=== PATIENT | male | born 1945 | race Caucasian/White ===

== ENCOUNTER 2024-05-27 15:04 | Inpatient (IN) | payer MEDICARE, OTHER, SELFPAY ==
[2024-05-27] VITALS (52 sets, daily range): BP systolic 60–121; BP diastolic 47–85; BMI 23.3; BMI 22.7
--- NOTE | 2024-05-27 11:58 | ED.GENMED ---
History of Present Illness
General
Chief Complaint: Weakness
Source: patient
Exam Limitations: none
Time Seen by Provider: 05/27/24 11:41
History of Present Illness
History of Present Illness:
See MDM
Past History
Past History
ED Past Medical History: Cancer, GERD, HTN and Other (Arthritis)
ED Past Surgical History: Cholecystectomy, Orthopedic (Hip replacement surgery, knee arthroscopy, carpal tunnel surgery) and Other (History of pyloric valve stenosis with dilatation whipple)
Social History
Tobacco: Non-smoker
Alcohol: Daily
Drug: None
Personal:
Living: with family
Employment: Retired
Family History
Family History: Other (n/c)
Phy Exam
Physical Exam
Physical Exam:
See MDM
Course
Orders/Labs/Results
Orders:
Orders
05/27/24 11:29
Electrocardiogram (*1) Urgent
Reason for Study: Chest Pain
Cardiac Monitoring- Treatment ONCE
EKG- Treatment ONCE
IV Insert/Care/Rem.- Treatment PRN
O2 Therapy [RESP] Urgent
Titrate/Wean O2 to maintain O2 sat greater than (%): 90
Special Instructions: Maintain sats >/=90%
Pulse Ox/spot Check [RESP] Urgent
Quantity: 1
Special Instructions: ON ROOM AIR
05/27/24 11:34
Complete Blood Count/With Diff Urgent
Comprehensive Metabolic Panel Urgent
05/27/24 11:55
Add On- LAB Urgent
Tests Added?: Magnesium, TSH reflex Free T4
0.9% Sodium Chloride 1000 ml [Nss] 1,000 ml IV BOLUS
Diltiazem HCl [Cardizem] 10 mg IV NOW STA
Vital Signs
Initial and Last Documented VS:
Initial Vital Signs
Temp Pulse Resp BP Pulse Ox
98.4 F 138 20 82/57 93
05/27/24 11:30 05/27/24 11:30 05/27/24 11:30 05/27/24 11:30 05/27/24 11:30
Last Documented Vital Signs
Temp Pulse Resp BP Pulse Ox
98.4 F 141 26 82/57 94
05/27/24 11:30 05/27/24 11:45 05/27/24 11:45 05/27/24 11:31 05/27/24 11:45
MDM/Problems Addressed
Differential Diagnosis Includes:
HPI and MDM Narrative:
78-year-old male presenting with weakness and fatigue. Family does acknowledge that he has not been drinking much water recently. Patient just finished a 2-week course of radiation to his metastatic lung cancer. On arrival, patient found to be
tachycardic and in A-fib. He does acknowledge he has a history of paroxysmal A-fib but has never required blood thinners. Blood pressure is also low which is either related to the uncontrolled A-fib versus dehydration. Patient started on IV
fluids by EMS. Will give a very low dose of Cardizem in hopes to rate control the patient and increase his preload
Physical exam
General: Weak, fatigue
HEENT: protecting airway. Dry mucous membranes
Neck: appears supple
CV: No evidence of cyanosis. Tachycardic and
Resp: No accessory muscle use
Abd: Non-distended
Extremities: +2 pitting edema bilateral lower extremities
Neuro: alert
Psych: Normal affect
Skin: Intact
Problems Addressed including Acute and Chronic Conditions affecting care:
1. A-fib with RVR
Acuity: acute
Prognosis: unstable
Details: Patient given a low dose of IV Cardizem and attempt to rate control
2. Dehydration
Acuity: acute
Prognosis: unstable
Details: Will continue IV fluids
3. Hypoalbuminemia
Acuity: acute
Prognosis: stable
Details: Will give IV albumin
4. Thrombocytopenia
Acuity: acute
Prognosis: unstable
Details: Likely in setting of his radiation and cancer
5. [ ]
Acuity:
Prognosis:
Details:
Updates
Differential Diagnosis (but not limited to): A-fib, hyperthyroidism, dehydration
Testing considered: Chest x-ray
Drug therapy (if applicable): OTC meds, please see d/c instruction regarding Rx drugs
Amount and/or Complexity of Data Reviewed
Clinical info obtained from: Patient
External data reviewed: N/A
Labs I independently reviewed (but not limited to): Thrombocytopenia, elevated BUN, low albumin
Radiology: N/A
Pulse Ox: not hypoxic
EKG independently reviewed: A-fib with RVR, normal axis, no STEMI
Subacute Nurse: N/A
Critical Care: The high probability of a clinically significant, sudden or life threatening deterioration of the cardiovascular system(s) required my full and direct attention, intervention and personal management. The aggregate critical care time
was 33 minutes. This time is in addition to time spent performing reported procedures but includes the following:
[x] Data Review and interpretation
[x] Patient assessment and monitoring of vital signs
[x] Documentation
[x] Medication orders and management
Risk of Complication:
Social Determinants of health: Good social support
Discussed with other providers: Hospitalist
Escalation of Care includes Admit/Obs: Given the lab abnormalities, will admit for further workup
Occasional wrong word or 'sound a like' substitutions may have occurred due to the inherent limitations of voice recognition software. Read the chart carefully and recognize, using context, where substitutions have occurred.
*Critical Care Note
Total Time (30-74mins, 75-104mins- exclusive of procedures): 35 min
ED Attending Note
-
Portions of this chart may have been created with voice recognition software.� Occasional wrong word or��sound alike� substitutions may have occurred due to the inherent limitations of voice recognition software.
Discharge Plan
Departure
Patient Disposition: Admit
Date of Disposition: 05/27/24
Time of Disposition: 12:14
Admit to: IMU
Presentation/result/management discussed w/ accepting MD/DO: Hospitalist
Discharge Problem:
A-fib, Acute dehydration, Thrombocytopenia
Prescriptions:
No Action
multivitamin [Daily Multiple] 1 EACH tablet
1 tab PO DAILY
diltiazem HCl 360 MG capsule,extended release 24 hr
120 mg PO DAILY Qty: 30 0RF
Patient Comments:
pt states he takes 300mg, not the previous 360mg originally on the med list
pantoprazole 40 MG tablet,delayed release (DR/EC)
40 mg PO DAILY
Interventions
Interventions:
*Risk Screen - Suicide Last Done: 05/27/24 11:30
*General Assessment Last Done: 05/27/24 11:30
*Neglect/Abuse Screening Last Done: 05/27/24 11:30
ED- Fall Risk Assessment Last Done: 05/27/24 11:45
*ED COVID-19 Vaccine History Last Done: 05/27/24 11:30
ED- Cardiac Assessment Last Done: 05/27/24 11:45
ED- Neurological Assessment Last Done: 05/27/24 11:45
ED- Pulmonary Assessment Last Done: 05/27/24 11:45
Discharge Date and Time
Print Language: UGANDAN
[2024-05-27 11:59] LABS: ALT (SGPT) 42 U/L (0-50); AST (SGOT) 59 U/L (17-59); Albumin 2.2 g/dl (3.5-5.0); Alkaline Phosphatase 254 U/L (38-126); Blood Urea Nitrogen 116 mg/dl (9-20); Calcium 7.9 mg/dl (8.4-10.2); Carbon Dioxide 21 mmol/L (22-30); Chloride 100 mmol/L (98-107); Estimated Creatinine Clearance 27 ml/min; Glucose 116 mg/dl (70-99); Sodium 135 mmol/L (135-145); Total Bilirubin 1.6 mg/dl (0.2-1.3); Total Protein 4.2 g/dl (6.3-8.2); eGFR 28.18
[2024-05-27] MEDS: CARDIZEM 5 MG IV (12:01)
[2024-05-27 12:03] LABS: Hematocrit 30.3 % (39.0-52.0); Mean Corp Hgb Conc. 36.3 g/dL (33.0-37.0); Mean Corpuscular Hgb 34.6 pg (27.0-31.0); Mean Corpuscular Volume 95.3 fL (80.0-94.0); Platelet Count 3 10^3/uL (130-400); Red Blood Cell Count 3.18 10^6/uL (4.70-6.10); White Blood Cell Count 7.2 10^3/uL (4.8-10.8)
[2024-05-27] MEDS: NSS 1000 IV ×3 (12:03→23:00)
[2024-05-27 12:29] LABS: % Basophils 0.7 % (0-2); % Immature Granulocytes 2.9 % (0-0.5); % Lymphocytes 0.8 % (20.5-51.1); % Monocytes 3.3 % (1.7-9.3); % Neutrophils 92.3 % (42.2-75.2); Absolute Basophils 0.1 10^3/uL (0-0.2); Absolute Immature Granulocytes 0.2 10^3/uL (0-0.05); Absolute Lymphocytes 0.1 10^3/uL (1.2-3.4); Absolute Monocytes 0.2 10^3/uL (0.1-0.6); Absolute Neutrophils 6.6 10^3/uL (1.4-6.5); Nucleated Red Blood Cells % 0 % (-)
[2024-05-27] MEDS: FLEXBUMIN 50 IV (12:29)
[2024-05-27 13:03] LABS: Magnesium 2.3 mg/dl (1.6-2.3)
--- NOTE | 2024-05-27 13:08 | HPS.HSE ---
Family Physician
-
Family Physician: Viraj Cuevas
Chief Complaint
-
Weakness, fatigue, sore throat, cough, dysphagia, current metastatic pancreatic CA
History of Present Illness
78-year-old male from home by EMS complaining of weakness and fatigue, 4 days of productive cough with sore throat, dysphagia. His family reported to ER he has not been eating and drinking as much recently. He just finished a 2-week course of
radiation due to metastatic pancreatic ca mets to right lung pleural space December 2022. He also finished dexamethasone 2 mg twice daily yesterday 05/26/2024 due to radiation with right arm pain. He currently has oral thrush with sore throat and
dysphagia. En route to ER he was noted to be in rapid A-fib and hypotensive. He was started on IV fluids by EMS. In ER heart rate was noted to be A-fib with RVR 123 bpm with blood pressure 82/57 he was given low-dose 5mg Cardizem and additional 2
L of IV fluids for a total of 3 L. Despite treatment he is still in rapid A-fib and hypotensive.
He has past medical history of metastatic pancreatic CA initial Dx 2013 mets December 2022 to right pleural space status post chemo December 2022April 2024 Xeloda stopped April 15, 2024 by oncology history of Whipple procedure 2014, paroxysmal A-fib,
GERD, macrocytic anemia, chronic hyponatremia secondary metastatic pancreatic CA. December 2022 to right pleural space status post chemo December 2022April 2024, history of Whipple procedure 2014
Medical History
Past Medical History
Past Medical History: Reports Other
Additional Past Medical History:
metastatic pancreatic CA initial Dx 2014 mets December 2022 to right pleural space status post chemo December 2022April 2024 Xeloda
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
paroxysmal A-fib
Cardiac murmur known
GERD
macrocytic anemia
chronic hyponatremia secondary metastatic pancreatic CA
history of Whipple procedure 2014
Past Surgical History: Reports Other
Additional Past Surgical History:
Left hip pinning 1957
Right knee arthroscopy times 10/25/1979
Left total hip replacement 2006
Right total knee replacement 2018
CTR bilateral hands SeptemberOctober 2013
Pyloric valve dilation
Whipple 2014
Social History
Tobacco: Non-smoker
Alcohol: Former (Used to drink 2 glasses of wine daily until 1 month ago)
Drug: None
Personal:
Living: With Family ( myke )
Employment: Retired
Family History
Family History: Not pertinent
Allergies / Home Medications
Allergies reflects when Allergies were last updated in [employer].
Home Medications with original date entered in [employer]
Allergy/Medication List:
Allergies
Allergy/AdvReac Type Severity Reaction Status Date / Time
No Known Allergies Allergy Verified 01/13/19 19:53
Home Medications
Pancreatic Nutrients 1 tab PO BID@0800,2200 05/27/24
dexamethasone 2 mg tablet 2 mg PO BID 05/27/24
diltiazem HCl 120 mg capsule,24 hr,extended release (Tiadylt ER) 120 mg PO DAILY 05/27/24
famotidine 40 mg tablet 40 mg PO DAILY 05/27/24
mnyjcd-fxxjutuy-moklltm 24,000-76,000-120,000 unit capsule,delayed rel (Creon) 1 cap PO BID@1200,1800 05/27/24
sodium chloride 1,000 mg soluble tablet 2,000 mg PO BID 05/27/24
Review of Systems
-
History Source: Patient and Family ( myke and daughter at bedside)
A 12 point ROS was completed and negative except as noted: Yes
Constitutional: Reports Fatigue; Denies Fever or Chills
EENT: Reports Sore Throat and Other (Dysphagia, oral thrush); Denies Runny Nose
Respiratory: Reports Cough (Productive white-hurtado); Denies Trouble Breathing
Cardiac: Denies Chest Pain, Diaphoresis, Palpitations or Syncope
Abdomen/GI: Reports Other (Reported decreased urine output but decreased oral intake); Denies Abdominal Pain, Nausea, Vomiting, Diarrhea, Constipated, Bloody Stools or Black Stools
: Denies Dysuria, Frequency, Flank Pain, Incontinence, Difficulty Voiding or Urgency
Musculoskeletal: Reports Edema (+1-2 lower ankles only); Denies Joint Pain
Skin: Denies Itching or Rash
Neurological: Reports Weakness (Generalized); Denies Dizzy or Headache
Endocrine: Reports No Symptoms
Hematologic/Lymphatic: Reports No Symptoms
Psych: Reports Calm
Physical Exam
Vital Signs
Vital Signs
Temp Pulse Resp BP Pulse Ox
98.4 F 116 18 75/63 93
05/27/24 11:30 05/27/24 12:45 05/27/24 12:45 05/27/24 12:30 05/27/24 12:45
Physical Exam
General: Comfortable, Conversant and Other (Generalized weakness); No Fever or Chills
HEENT: NormoCephalic, Thrush (Oral thrush present), PERRLA, [place] Conjunctivae, No Ptosis and Other (Dry oral mucosa)
Respiratory: No Wheezes, Rales or Rhonchi
Cardiac: S1/S2, Irregular Rhythm (Rapid A-fib with RVR 132 bpm), Murmur (Holosystolic 3/6) and Peripheral Edema (+2 lower ankles only)
Breast: Deferred by me
GI: Soft, Non Tender, Non Distended, Normal Bowel Sounds and No Hepatosplenomegaly
Rectal: Deferred by Provider
Genito-urinary: Deferred by me
Musculoskeletal: No Clubbing, No Cyanosis, Edema, Left Lower Extremity (+1-2 lower ankles only) and Edema, Right Lower Extremity (+1-2 lower ankles only); No Edema, Left Upper Extremity or Edema, Right Upper Extremity
Skin: Warm and Dry; No Rash
Neuro: AO x 3, No Motor Deficits, Nonfocal/grossly intact and No Sensory Deficits; No Slurred Speech, Facial Droop or Tremors
Psych: Calm
Laboratory Results
-
05/27/24 11:34
05/27/24 11:34
Laboratory Results
Total Bilirubin 1.6 mg/dl (0.2-1.3) H 05/27/24 11:34
AST 59 U/L (17-59) 05/27/24 11:34
ALT 42 U/L (0-50) 05/27/24 11:34
Alkaline Phosphatase 254 U/L (38-126) H 05/27/24 11:34
Impression/Plan
-
Impression/plan:
Admit to ICU
#A-fib with RVR�UNstable/paroxysmal A-fib
-HR 123 bpm on EKG
-Patient was given diltiazem 5 mg IV in ER with BP 82/57
-Hold p.o. diltiazem 120 mg daily due to hypotension
-Will give IV amiodarone drip for rate control and IV phenylephrine for pressure support
-Check mag, TSH with free T4
-Repeat EKG when heart rate less than 100
-Check 2D echo
-Consult CBC cardiology-discussed with Dr. Hall
EKG: A-fib with RVR HR 126 bpm, QTc 422 MS nonspecific T wave abnormality inferior leads, anterolateral leads
2D echo 07/26/2020: EF 55-60%, mild MR, calcified aortic valve with mild mild AI
#Acute hypotension likely volume depletion possible sepsis/benign HTN
67/58 >75/63
Patient given 3 liters total NSS
-IV phenylephrine drip
-Check lactic acid, Pro-Driss, blood culture x 1
-Consult security sergeant
-
#Acute thrombocytopenia unclear
PLT 3, stopped Chemo Xeloda Apr 15
-Check type and screen, obtain transfusion consent
-Transfuse platelets per oncology
-IV Decadron 40 mg daily x 5 pulse dose, IV PPI
-Consult Hematology
#SHANI likely volume depletion vs obstructive uropathy
Creat 2.3/bun 116
-IV NSS 3 L given in ER, continue IV fluids
-Bladder scan protocol
-Check UA DIRECTOR SAFETY
-Check renal bladder ultrasound when stable
-Consider Nephro consult
follow cmp, cbc
#Acute hypoxic resp insuff concern for PNA
88 % Ra, give 2 liter nc
- check CXR
-sputum culture
- covid, flu swab, lactic acid, Pro-Driss
-Will cover with vancomycin, IV Zosyn
#Metastatic Pancreatic ca( x 2013 whipple 2015) METS to R lung plueral space december 2022
Hx fluid right pleural fluid s/p pluerax tube december 2022
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
-Stopped Xeloda April 15, [address] Kulwinder Singh oncology at [place] [phone]
-Had reported PET scan April 2024 at [place]
-Continue Creon 1 cap p.o. twice daily
#Anemia macrocytic
Hgb 11 prior 10.7 in 2019
-Follow CBC
#Chronic hyponatremia 2/2 metastatic lung cancer
-NA 135
-Patient on sodium chloride 2000 mg twice daily hasnt taken in 4 days
-Follow BMP
#GERD
Hx pyloric valve dilation
-Will give IV Protonix 40 mg daily hold oral Pepcid 40 mg daily
DVT prophylaxis
-Current platelets of 3
DNR per patient with Myke at bedside
[2024-05-27 13:40] LABS: TSH Reflex To Free T4 0.19 uIU/ml (0.47-4.68)
[2024-05-27 14:10] LABS: Free T4 1.34 ng/dl (0.78-2.19)
--- NOTE | 2024-05-27 14:34 | W.PN.UPDATE ---
Addendum entered and electronically signed by Richi Stuart MD 05/27/24 15:02:
Albumin was given in ER. 1 unit platelet transfusion. Nystatin swish and swallow for thrush.
Original Note:
Update Note
Progress Note Update
This is an addendum to the H&P written by Love Hernandez on 05/27/2024. Patient seen examined independently with TIRE DESIGN ENGINEER.
78-year-old male past medical history of metastatic pancreatic cancer status post Whipple with metastases to the right pleural space with chest tube now removed, status post chemotherapy from December 2022 to April 2024, Xeloda, paroxysmal atrial
fibrillation, GERD, microcytic anemia, chronic hyponatremia, presenting with weakness, fatigue, sore throat, cough.
Patient arrived hypotensive and in atrial fibrillation with RVR with heart rate of 130s. He was given 3 L of IV fluids. Cardizem was given in ER with worsening of blood pressure.
Labs show SHANI with creatinine of 2.3, severe thrombocytopenia with platelets of 3.
Primary issue is atrial fibrillation with RVR with hypotension. The underlying cause of this could be hypovolemia versus infection. Check chest x-ray to evaluate for pneumonia. Check sputum culture and COVID. Check blood culture. Continue IV
fluids. Start empiric vancomycin/Zosyn. Check lactic acid/Pro-Driss. Discussed with cardiology who recommended phenylephrine drip and amiodarone drip. Check TSH and echocardiogram.
Patient has SHANI without any prior lab work available. This is likely due to hypotension/hypovolemia. Monitor with IV fluids. Check renal ultrasound when more hemodynamically stable. Monitor I's and O's. Bladder scan protocol. Nephrology
consulted.
Severe thrombocytopenia unclear etiology. This could possibly be secondary to recent chemotherapy versus marrow involvement of the pancreatic cancer. No petechiae or bleeding suggest ITP. Discussed with oncology who recommends pulse dose steroids
with dexamethasone.
[2024-05-27] MEDS: NEO-SYNEPHRINE 250 IV ×2 (14:37→21:51)
[2024-05-27 14:44] LABS: COVID-19 Antigen Negative (Negative)
[2024-05-27] MEDS: PROTONIX IV 40 MG IV (14:45)
[2024-05-27] MEDS: CORDARONE 518 MG IV (14:47)
[2024-05-27 15:02] LABS: Lactic Acid 3.5 mmol/L (0.7-2.0)
[2024-05-27] MEDS: DECADRON 60 MG IV (15:04)
--- NOTE | 2024-05-27 15:12 | CM ---
CM reviewed medical record. CM met with patient and his , Doris in room. Patient confirmed demographics. Patient lives in [place] at [facility]. Patient is monitored by the [facility] RN. Patient does have a history of VN 'set up by Sonny', but
is currently not on service. Patient denies SNF stay. Patient has been increasingly dependent on a walker. Patient is active with his PCP and uses [facility] for medication services.
CM will continue to follow for needs.
--- NOTE | 2024-05-27 15:23 | CON.INTV ---
Consultation
Consultation Request
Date/Time Consultation Requested: 05/27/2024-3:30 PM
Date/Time Consultation Performed: 05/27/2024-4 PM
Requesting Provider: Hospitalist
Performing Provider: Dr. Jean
Reason for Consultation: Critical care management
Medical History
-
Chief Complaint: Cough, weakness, hypotension
History of Present Illness:
78-year-old male with a history of metastatic pancreatic cancer, paroxysmal atrial fibrillation, GERD, chronic hyponatremia who presented with weakness, fatigue, sore throat, cough and dysphagia noted to have severe thrombocytopenia, rapid atrial
fibrillation on amiodarone and phenylephrine drip-executive director of marketing consulted for pressor, atrial fibrillation, critical care management 05/27/2024. The patient states he has not had much of an appetite has had some weight loss. He did not have any
fevers or chills or night sweats. He does have some mild chest congestion. He did not complain of productive cough, chest pain, pleurisy, or abdominal pain, nausea, focal weakness and he had some lower extremity swelling that is actually improved.
Past Medical History
Past Medical History: None (Metastatic pancreatic cancer-diagnosed 2013 status post chemo/immunotherapy/Whipple. Metastatic disease to right pleural space. Right upper lobe nodule. PAF. GERD. Chronic anemia. Chronic hyponatremia.)
Past Surgical History: None (Whipple 2014. Left hip pinning 1957. Right knee arthroscopy 1979. Left hip replacement 2006. Right total knee replacement 2018. Carpal tunnel 2013. Pyloric valve dilation.)
Social History
Tobacco: Non-smoker
Alcohol: Occasional
Drug: None
Personal:
Living: With Family
Occupational Exposures: No known asbestos exposure
Environmental Exposures: No known tuberculosis exposure
Allergies / Home Medications
Allergies
Allergy/AdvReac Type Severity Reaction Status Date / Time
No Known Allergies Allergy Verified 01/13/19 19:53
Home Medications
�Medication �Instructions �Recorded �Confirmed �Last Taken �Type
Pancreatic Nutrients 1 tab PO BID@0800,2200 05/27/24 05/27/24 Unknown History
dexamethasone 2 mg tablet 2 mg PO BID 05/27/24 05/27/24 05/26/24 History
diltiazem HCl 120 mg capsule,24 120 mg PO DAILY 05/27/24 05/27/24 05/26/24 History
hr,extended release (Tiadylt ER)
famotidine 40 mg tablet 40 mg PO DAILY 05/27/24 05/27/24 Unknown History
yaetpv-paxprmyg-dfrnwvs 1 cap PO BID@1200,1800 05/27/24 05/27/24 Unknown History
24,000-76,000-120,000 unit
capsule,delayed rel (Creon)
sodium chloride 1,000 mg soluble 2,000 mg PO BID 05/27/24 05/27/24 Unknown History
tablet
Review of Systems
-
Unable to Obtain full review of systems at this time due to: Other (Per HPI)
Vitals / Labs / Diagnostic Testing
Vital Signs
Temp Pulse Resp BP Pulse Ox
98.4 F 129 25 116/62 91
05/27/24 11:30 05/27/24 15:01 05/27/24 15:01 05/27/24 15:01 05/27/24 15:01
Lab Data
05/27/24 11:34
05/27/24 11:34
Microbiology
05/27/24 13:57 Nasal Swab Influenza Types A & B (MORENO) - Final
Negative for Influenza A & B, NAAT
Negative results must be combined with clinical observations
and patient history.
Nucleic Acid Amplification test (NAAT)performed on the
[employer] platform.
Diagnostic Testing:
Physical Exam
-
Exam:
Well-nourished and well-developed in no apparent distress
HEENT-atraumatic, normocephalic
Neck-supple, no JVD, no bruit
Heart-regular rate and rhythm-no murmurs, rubs or gallops
Chest-clear to auscultation, no wheezes, crackles
Back-no tenderness
Abdomen-soft, nontender, nondistended, no hepatosplenomegaly
Extremities-no cyanosis, clubbing, edema and good peripheral pulses
Integument-intact, no rashes, lesions or ecchymosis
Neurology-alert and oriented, nonfocal motor and sensory exam
Assessment
-
78-year-old male with a history of metastatic pancreatic cancer, paroxysmal atrial fibrillation, GERD, chronic hyponatremia who presented with weakness, fatigue, sore throat, cough and dysphagia noted to have severe thrombocytopenia, rapid atrial
fibrillation on amiodarone and phenylephrine drip-executive director of marketing consulted for pressor, atrial fibrillation, critical care management 05/27/2024.
Rapid atrial fibrillation unstable with hypotension
Pneumonia
Sepsis suspected
Thrombocytopenia-platelet 3-stopped chemo Xeloda April 15, 2024
SHANI
Hyponatremia
Phrwid-lqcv-goflwxdftf-hemoglobin 11.0
Mild hyperglycemia
Lactic acidosis
Elevated total bilirubin
Hypoalbuminemia
DNR
Conditions present prior to admission:
Metastatic pancreatic cancer-diagnosed 2013 status post chemo/immunotherapy/Whipple.
Metastatic pancreatic cancer with known mets to right pleural space December 2022
History of right pleural catheter December 2022
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
[phone]
Right upper lobe nodule.
PAF.
GERD.
Chronic anemia.
Chronic hyponatremia.
Whipple 2014. Left hip pinning 1957. Right knee arthroscopy 1979. Left hip replacement 2006. Right total knee replacement 2019. Carpal tunnel 2014. Pyloric valve dilation.
Plan
Admit patient to medical intensive care unit for persistent hypotension despite fluid resuscitation requiring pressors
Supplement oxygen as needed
High flow oxygen if needed
BiPAP if necessary
Patient is a DNR-not to be intubated
Aspiration precautions
Nebulizers if needed
Obtain cultures
Obtain sputum culture
Influenza negative
COVID-negative
Empiric antibiotics
Consider Infectious disease consultation
Monitor leukocytosis
Fluid resuscitation with 30 mL/kg crystalloid-preferably lactated ringer-(less SHANI) with subsequent boluses as needed
Monitor lactate
Follow CVP if possible
Attempt noninvasive bedside tissue perfusion evaluation to see if fluid bolus responsive
Measure pulse pressure and stroke volume variation if patient on ventilator, passively breathing without arrhythmia and with temporary large tidal volume ventilation and if > 13% then likely fluid bolus responsive
If patient active then consider measuring bedside leg lift for 3 minutes and if cardiac output increases or if there is a rise of 2-4 on end-tidal CO2 then fluid bolus
If bedside ultrasound available then measure IVC diameter variation to evaluate for fluid bolus responsiveness
Begin pressors as needed for MAP goal of 65-Norepinephrine first, then Vasopressin and consider Angiotensin II if continues to be hypotensive
Consider methylene blue if available-specific inhibitor of induced nitric oxide synthase iNOS and its downstream enzyme soluble guanylate cyclase-noninferiority study shown to reduce time to vasopressor discontinuation, decreased ICU length of stay,
hospital stay but no change in mortality-published Critical Care 11/16/2022
If persistently hypotensive then consider checking random cortisol-hydrocortisone if random less than 3, if 3-15 then consider ACTH stimulation test
If persistently hyperthermic then correcting hyperthermia can decrease pressor requirements, increased chances of reversal of shock and decrease mortality
Rapid atrial fibrillation rate control
Amiodarone drip initiated
Phenylephrine initiated because of hypotension
Cardiology evaluation pending
Trend troponin
Monitor hemoglobin
Transfuse as needed
Monitor platelet count
Transfuse platelets as needed-no active bleeding
Oncology evaluation pending
Monitor blood sugar
Insulin supplementation as needed
Monitor renal function
Replace electrolytes
Consider nephrology evaluation
Garcia catheter for urinary retention as well as strict intake/output
Monitor liver functions
DVT prophylaxis-mechanical
Early nutrition if possible
Early mobilization/bedside range of motion
Critical care statement: A total of 50 minutes of critical care time was provided for this patient today. This includes management of unstable vital signs, evaluation of the patient at bedside, reviewing the patient's pertinent medical records
including radiographs, microbiology, laboratory evaluations, and discussion with primary team, consultants, pharmacy, nutrition, physical therapy, case management, charge nurse, critical care nursing, and respiratory therapy.
Diagnostic data:
Chest x-ray 05/27/2024-small right pleural effusion, bilateral interstitial pulmonary opacifications, suspected CHF
Echocardiogram 08/05/2020-EF 55-60%, stage I diastolic dysfunction, mild mitral regurgitation, mild aortic stenosis and mild aortic insufficiency
PFT 02/19/2015-FEV1 3.6 L - 110%, FVC 103%, TLC 81%, DLCO 62%
Data Reviewed
-
PFT: Report reviewed by me
EKG: Report reviewed by me
Radiology: Report reviewed by me
CT Scan: Report reviewed by me
Medical Tests (Nuc Med, Echo etc): Report reviewed by me
Labs: Labs reviewed by me
Old Records: Reviewed
Critical Care Time (in minutes): 50
[2024-05-27 15:38] LABS: Procalcitonin 47.26 ng/ml (0.0-0.25)
--- NOTE | 2024-05-27 16:27 | CON.CAR ---
Consultation
Consultation Request
Date/Time Consultation Requested: 05/27/24, 2pm
Date/Time Consultation Performed: 05/27/24, 3pm
Requesting Provider: Sade
Performing Provider: Isabel
Reason for Consultation: A fib
Medical History
-
Chief Complaint: weakness
History of Present Illness:
78 yo male with PMH mild , mild AR, paroxysmal A fib, metastatic pancreatic CA initial Dx 2013, Whipple 2014, mets December 2022 to right pleural space, status post chemo December 2022April 2024 (Xeloda); now s/p 2 weeks of chest radiation admitted
with weakness. noticed he has not been eating/drinking much for about one week. Patient reports dysphagia, cough. RN from [facility] checked on him: was told BP was low and should go to hospital.
Upon arrival: hypotensive, A fib with RVR, SHANI, severe thrombocytopenia (plts 3).
Past Medical History
Past Medical History: Arrhythmias (paroxysmal A fib), Cancer (pancreatic) and Valvular Disease (mild and AR)
Past Surgical History: Other (ipp2014)
Social History
Tobacco: Former Smoker
Living: With Family
Family History
Family History: Early CAD (none)
Allergies / Home Medications
Allergy/AdvReac Type Severity Reaction Status Date / Time
No Known Allergies Allergy Verified 01/13/19 19:53
�Medication �Instructions �Recorded �Confirmed �Type
Pancreatic Nutrients 1 tab PO BID@0800,2200 05/27/24 05/27/24 History
dexamethasone 2 mg tablet 2 mg PO BID 05/27/24 05/27/24 History
diltiazem HCl 120 mg capsule,24 120 mg PO DAILY 05/27/24 05/27/24 History
hr,extended release (Tiadylt ER)
famotidine 40 mg tablet 40 mg PO DAILY 05/27/24 05/27/24 History
pvwxqc-ulaxgszk-vunbjrs 1 cap PO BID@1200,1800 05/27/24 05/27/24 History
24,000-76,000-120,000 unit
capsule,delayed rel (Creon)
sodium chloride 1,000 mg soluble 2,000 mg PO BID 05/27/24 05/27/24 History
tablet
Review of Systems
-
History Source: Patient and Family
All other systems: Negative unless noted
Constitutional: Fatigue
EENT: Sore Throat and Mouth Pain
Respiratory: Cough and Trouble Breathing
Neurological: Dizzy and Weakness
Physical Exam
Vital Signs
Temp Pulse Resp BP Pulse Ox
98.4 F 126 24 114/73 94
05/27/24 16:07 05/27/24 15:30 05/27/24 15:30 05/27/24 15:30 05/27/24 15:30
Lab Results
05/27/24 11:34
05/27/24 11:34
Physical Exam
General: Other (lethargic)
HEENT: Normocephalic
Respiratory: Clear and Accessory Resp Muscle Use
Cardiac: S1/S2 (normal), Irregular Rhythm, Murmur (II/ systolic at RUSB) and Peripheral Edema (none)
GI: Soft
Musculoskeletal: No Clubbing, No Cyanosis and No Edema
Skin: Warm and Dry
Neuro: Other (lethargic)
Psych: Calm
Impression / Plan
-
78 yo male with PMH mild , mild AR, paroxysmal A fib, metastatic pancreatic CA initial Dx 2013, Whipple 2015, mets December 2022 to right pleural space, status post chemo December 2022April 2024 (Xeloda); now s/p 2 weeks of chest radiation admitted
with weakness. noticed he has not been eating/drinking much for about one week. Patient reports dysphagia, cough. RN from [facility] checked on him: was told BP was low and should go to hospital.
Upon arrival: hypotensive, A fib with RVR, SHANI, severe thrombocytopenia (plts 3). Patient is critically ill.
# Hypotension, SHANI
-poor PO intake/failure ot thrive for past week
-IV fluid resuscitation
-pressors: using ramez to have minimal effect on HR/Afib
-infectious eval
# A fib with RVR
-has h/o paroxysmal A fib
-no OAC due to low plts (CHADS2-VASC = 2).
-given low BP, will use amiodarone for rate control
-echo this admission
# Mild and AR
-last echo 2019
-repeat this admission
# Metastatic pancreatic cancer, thrombocytopenia
-s/p Xeloda and radiation
-per oncology: steroids will be given
Data Reviewed
-
EKG: Tracing Personally Visualized and interpreted (A fib with RVR)
Labs: Labs Reviewed by me
Critical Care Time (in minutes): 70
[2024-05-27] MEDS: ZOSYN 50 IV ×2 (16:39→21:45)
[2024-05-27 17:12] LABS: Urine Albumin Trace (Neg - Trace); Urine Bilirubin 1+ (Negative); Urine Character Very Cloudy (Clear); Urine Color Amber; Urine Glucose Negative (Negative); Urine Ketone Negative (Negative); Urine Leukocyte Trace (Negative); Urine Nitrite Negative (Negative); Urine Occult Blood 3+ (Negative); Urine Urobilinogen 2+ (Neg - 1+)
[2024-05-27] MEDS: VANCOCIN 540 MG IV (17:14)
[2024-05-27 17:20] LABS: INR 1.46; PT 17.6 Sec (11.4-14.6)
[2024-05-27 17:21] LABS: APTT 32.1 Sec (23.4-35.0); Urine Bacteria Many (Negative); Urine Red Blood Cell 0-2 /HPF (0-2); Urine Squamous Cell 0-2 /LPF (Few)
--- NOTE | 2024-05-27 18:00 | PTCARENOTE ---
Assumed care of pt at 1500 upon arrival to Rm [id number] via stretcher from ED. Pt awake and appropriately responsive at time of arrival. Denies c/o pain. Received w/ Amiodarone gtt at 1mg/min and Neosynephrine at 50mcg/min. O2 at 2l/min w/ POx mid 90's.
No respiratory distress noted. Physical and admission completed. Pt unable to void and c/o 'full' bladder. Bladder scan completed. Dr Azar notified of findings- orders received to place Garcia catheter- inserted following sterile technique. Urine
specimen obtained and sent to lab per order. Platelets administered per order. Pt's and daughter in room to visit- updated on pt's present condition, plan of care. Questions answered and emotional support provided. IVF and ordered antibiotics
given. Titrating Neosynephrine gtt to maintain SBP >90 (see worklist intervention) Oral and comfort care provided. Call alberto w/in pt reach and safe environment maintained.
[2024-05-27] MEDS: MYCOSTATIN ORAL SUSPENSION 5 ML PO ×2 (18:46→21:45)
[2024-05-27] MEDS: NOVOLOG FLEXPEN-LOW RESISTANCE SC (18:46)
[2024-05-27 18:57] LABS: Glucose - Point of Care 85 mg/dl (70-99)
--- NOTE | 2024-05-27 20:00 | PTCARENOTE ---
Received pt resting in bed, AAOx2-3. Forgetful at times. ALARCON but weak. Afib on tele, HR 100-120s. Remains on amio gtt. Adrian gtt on to maintain SBP >90- see worklist for titrations. +1 LE edema. Afebrile. DP/PT pulses by doppler. On 2L NC, spo2 94%.
Lungs CTA but diminished throughout. Intermittent cough with light brown sputum. Hypoactive bowel sounds. NPO. Garcia draining kelli urine. See I&O. R FA INT with amio and adrian gtts. L FA with NSS @ 80ml/hr as ordered. Assisted with mouth care. Pt.
without complaints. Monitoring
[2024-05-27] MEDS: ATIVAN 0.5 MG IV (21:22)
[2024-05-27] MEDS: NSS (PRESERVATIVE FREE) 0.25 ML IV (21:22)
--- NOTE | 2024-05-27 21:56 | PHA.VAN.IN ---
Assessment
- Assessment
Renal Function: Appears elevated from baseline
Concomitant Antimicrobials: Piperacillin/tazobactam
Plan
- Plan
Initial / Loading Dose: Vancomycin 2000mg given 05/27 at 1700
Will dose by level due to current renal function.
Vancomycin random level 05/28 with AM labs.
Pharmacokinetics Vancomycin I
- -
Patient Age: 78
Patient Sex: Male
Vancomycin Day #: 1
Indication: Pulmonary/Respiratory
Requesting Provider: DIOGO Gill
Pertinent Antimicrobial Allergies:
No Known Allergies Allergy (Verified 01/13/19 19:53)
Height / Weight:
Height 5 ft 10 in
Actual Weight 71.7 kg
Pertinent Past Medical History: metastatic pancreatic cancer, finished chemo 04/15/24,
- Vital Signs / Lab Results
Temp Pulse Resp BP Pulse Ox
98.1 F 110 28 97/76 96
05/27/24 20:00 05/27/24 20:45 05/27/24 20:45 05/27/24 20:45 05/27/24 20:45
Lab Results - Hematology
05/27/24
11:34
WBC 7.2
Lab Results - Chemistry
05/27/24
11:34
BUN 116 H*
Creatinine 2.3 H
Estimated Creat Clear 27
Albumin 2.2 L
05/27/24 05/27/24
14:41 18:30
Lactic Acid 3.5 H 3.0 H
Lab Results - Urine
05/27/24
16:58
Urine Nitrite (Reflex) Negative
Leukocyte Esterase Rfl Trace A
Urine WBC (Reflex) 3-5
Ur Squamous Epith Cells 0-2
Urine Bacteria (Reflex) Many A
Microbiology Results
05/27/24 13:57 Influenza Types A & B (MORENO) - Final
Nasal Swab Negative for Influenza A & B, NAAT
Negative results must be combined with clinical observations
and patient history.
Nucleic Acid Amplification test (NAAT)performed on the
[employer] platform.
[2024-05-27 22:37] LABS: Lactic Acid 2.9 mmol/L (0.7-2.0)
--- NOTE | 2024-05-27 22:55 | PTCARENOTE ---
Urine output 20-25ml/hr, kelli urine. Lactic remains elevated. BUTTON INSPECTOR notified. 1L NS bolus ordered and hung. Pt resting calmly. Incontinent of bowel x2 earlier- cleaned.
[2024-05-28] VITALS (41 sets, daily range): BP systolic 92–127; BP diastolic 62–96; PULSE 69–70; O2SAT 93
[2024-05-28] MEDS: NOVOLOG FLEXPEN-LOW RESISTANCE SC (00:04)
[2024-05-28 00:05] LABS: Glucose - Point of Care 143 mg/dl (70-99)
--- NOTE | 2024-05-28 00:12 | PTCARENOTE ---
Pt converted to NSR, HR 60-70s.
[2024-05-28] MEDS: ZOSYN 50 IV ×4 (03:02→21:42)
[2024-05-28 03:26] LABS: Lactic Acid 1.6 mmol/L (0.7-2.0)
--- NOTE | 2024-05-28 03:45 | PTCARENOTE ---
Addendum entered by Nora Moore RN 05/28/24 06:21:
around 0400, HR maintaining high 50s. Discussed with DIOGO. Amio gtt shut off.
Original Note:
Pt. slept throughout night, repositioned q2. After conversion to NSR, able to wean ramez gtt to off. BP maintaining. Remains NSR HR 60s-70s. AM labs drawn.
[2024-05-28 03:54] LABS: Hematocrit 27.6 % (39.0-52.0); Hemoglobin 9.7 g/dL (13.0-18.0); Mean Corp Hgb Conc. 35.1 g/dL (33.0-37.0); Mean Corpuscular Hgb 33.8 pg (27.0-31.0); Mean Corpuscular Volume 96.2 fL (80.0-94.0); Mean Platelet Volume 9.7 fL (7.4-10.4); Platelet Count 3 10^3/uL (130-400); Red Blood Cell Count 2.87 10^6/uL (4.70-6.10); Red Cell Dist. Width 16.4 % (11.5-14.5); White Blood Cell Count 9.3 10^3/uL (4.8-10.8)
[2024-05-28 04:02] LABS: ALT (SGPT) 61 U/L (0-50); AST (SGOT) 146 U/L (17-59); Albumin 1.8 g/dl (3.5-5.0); Alkaline Phosphatase 212 U/L (38-126); Blood Urea Nitrogen 111 mg/dl (9-20); Calcium 7.1 mg/dl (8.4-10.2); Carbon Dioxide 19 mmol/L (22-30); Chloride 107 mmol/L (98-107); Estimated Creatinine Clearance 29 ml/min; Glucose 152 mg/dl (70-99); Potassium 3.9 mmol/L (3.5-5.1); Sodium 136 mmol/L (135-145); Total Bilirubin 1.8 mg/dl (0.2-1.3); Total Protein 3.5 g/dl (6.3-8.2); Vancomycin Random 16.7 ug/ml; eGFR 31.43
[2024-05-28 04:20] LABS: % Immature Granulocytes 1.7 % (0-0.5); % Lymphocytes 0.7 % (20.5-51.1); % Monocytes 5.6 % (1.7-9.3); Absolute Immature Granulocytes 0.2 10^3/uL (0-0.05); Absolute Lymphocytes 0.1 10^3/uL (1.2-3.4); Absolute Monocytes 0.5 10^3/uL (0.1-0.6); Absolute Neutrophils 8.6 10^3/uL (1.4-6.5); Nucleated Red Blood Cells % 0.2 % (-)
[2024-05-28 06:02] LABS: Glucose - Point of Care 170 mg/dl (70-99)
--- NOTE | 2024-05-28 07:15 | W.PN.INTV ---
Today's Communication / Plan
Recommendations
Antibiotics
Follow-up cultures
Diuresis, Adrian-Synephrine and amiodarone per cardiology
Platelet transfusions as needed
Hematology/oncology evaluation
Nephrology evaluation ongoing
If hemodynamically stable could be transferred out of ICU-call pulmonary if respiratory issues arise
Assessment
-
78-year-old male with a history of metastatic pancreatic cancer, paroxysmal atrial fibrillation, GERD, chronic hyponatremia who presented with weakness, fatigue, sore throat, cough and dysphagia noted to have severe thrombocytopenia, rapid atrial
fibrillation on amiodarone and phenylephrine drip-monomer recovery supervisor consulted for pressor, atrial fibrillation, critical care management 05/27/2024.
Rapid atrial fibrillation unstable with hypotension
Pneumonia
Sepsis suspected
Fkbsgrttqf-vqxv-lmwhdwnx bacilli 05/27/2024 from blood cultures
Thrombocytopenia-platelet 3-stopped chemo Xeloda April 15, 2024
SHANI
Hyponatremia
Rcaldz-zlel-bovgmbijar-hemoglobin 11.0
Mild hyperglycemia
Lactic acidosis
Elevated total bilirubin
Hypoalbuminemia
DNR
Conditions present prior to admission:
Metastatic pancreatic cancer-diagnosed 2013 status post chemo/immunotherapy/Whipple.
Metastatic pancreatic cancer with known mets to right pleural space December 2022
History of right pleural catheter December 2022
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
[phone]
Right upper lobe nodule.
PAF.
GERD.
Chronic anemia.
Chronic hyponatremia.
Whipple 2014. Left hip pinning 1957. Right knee arthroscopy 1979. Left hip replacement 2006. Right total knee replacement 2019. Carpal tunnel 2013. Pyloric valve dilation.
Plan
Hemodynamically improved-not requiring pressors at this time
Supplement oxygen as needed-attempt to wean to room air
High flow oxygen if needed
Patient is a DNR-not to be intubated
Aspiration precautions per protocol
Nebulizers if needed
Chest x-ray 05/27/2024-bilateral interstitial opacifications consistent with pulm edema, no obvious evidence for pneumonia
Cultures reviewed
Blood culture 05/27/20245104-nfpg-vpotzacb bacilli-ID and sensitivities pending
Influenza negative
Urine culture pending
Obtain sputum culture if able to produce-sputum sample provided 05/27/2024-not good specimen
Influenza negative
COVID-negative
Empiric antibiotics-on Zosyn
Monitor WBCs and temperature curve
Intravenous fluid resuscitation-still somewhat hypovolemic
Nephrology evaluation
Bicarbonate administration as needed
Trend lactate
Norepinephrine if needed
Garcia catheter placed for urinary retention as well as strict intake/output-no bleeding
If persistently hypotensive then consider checking random cortisol-hydrocortisone if random less than 3, if 3-15 then consider ACTH stimulation test
If persistently hyperthermic then correcting hyperthermia can decrease pressor requirements, increased chances of reversal of shock and decrease mortality
Atrial fibrillation rate control-has converted to sinus rhythm
Amiodarone drip
Phenylephrine initiated because of hypotension
Cardiology evaluation noted-correspondence reviewed-using Adrian-Synephrine and amiodarone
Troponin trended
Continue to follow hemoglobin
Transfuse as needed
Monitor platelet count-still 3 after transfusion
Transfuse platelets as needed-no active bleeding
Oncology evaluation to evaluate patient as well
Follow blood sugar
Insulin supplementation as needed
Follow liver functions
DVT prophylaxis-mechanical for now
Begin nutrition
Early mobilization/bedside range of motion
If able to be weaned off pressors with hemodynamic stability then could be transferred out of ICU-call pulmonary if respiratory issues arise
Critical care statement: A total of 40 minutes of critical care time was provided for this patient today. This includes management of unstable vital signs, evaluation of the patient at bedside, reviewing the patient's pertinent medical records
including radiographs, pressor management, microbiology, laboratory evaluations, and discussion with primary team, consultants, pharmacy, nutrition, physical therapy, case management, charge nurse, critical care nursing, and respiratory therapy.
Diagnostic data:
Chest x-ray 05/27/2024-small right pleural effusion, bilateral interstitial pulmonary opacifications, suspected CHF
Echocardiogram 08/05/2020-EF 55-60%, stage I diastolic dysfunction, mild mitral regurgitation, mild aortic stenosis and mild aortic insufficiency
PFT 02/19/2015-FEV1 3.6 L - 110%, FVC 103%, TLC 81%, DLCO 62%
Subjective Dataa
Subjective Data
Date of Service:
Date of Service: May 28, 2024
Chief Complaint: Airborne Operations Manager Follow Up and Pulmonary Follow Up
Subjective:
Feels better, not very hungry, no shortness of breath, chest pain, productive cough or abdominal pain
Review of Systems
General: Other (Per HPI)
Objective Data
Data Reviewed
Vital Signs / I&O / Oxygen:
Vital Signs
Temp Pulse Resp BP Pulse Ox
98.9 F 63 18 109/74 96
05/28/24 03:28 05/28/24 06:15 05/28/24 06:15 05/28/24 06:00 05/28/24 06:15
Intake and Output
05/27/24 05/28/24 05/29/24
06:59 06:59 06:59
Intake Total 3762.7 / 3762.7
Output Total 735 / 735
Balance 3027.7 / 3027.7
SaO2 96
Nasal Cannula flow liters per 2
minute
Physical Exam
General: Respiratory Distress (n) and Comfortable
HEENT: Normocephalic, Anicteric and Moist Mucous Membranes
Cardiovascular: Regular Rhythm
Respiratory: Crackles (Rare basilar), Rhonchi (n), Non-Labored Respirations, Accessory Resp Muscle Use (n) and Stridor (n)
GI: Soft, Non Distended and Non Tender
Neurology: Awake, Alert and No Motor Deficits
Skin: Warm, Good Color, Cyanosis (n), Jaundice (n) and Rash (n)
Labs/Micro/Reports
Lab Data
05/28/24 03:06
05/28/24 03:06
Laboratory Results
05/27/24
16:58
PT 17.6 H
INR 1.46
APTT 32.1
Microbiology
05/27/24 13:57 Blood/Venous Blood Culture - Preliminary
Positive culture in progress
05/27/24 13:57 Nasal Swab Influenza Types A & B (MORENO) - Final
Negative for Influenza A & B, NAAT
Negative results must be combined with clinical observations
and patient history.
Nucleic Acid Amplification test (NAAT)performed on the
[employer] platform.
--- NOTE | 2024-05-28 07:36 | W.PN.HOSP.TC ---
Today's Communication/Plan
-
Continue antibiotics
Blood cultures
Platelet transfusion
Hematology consult
Nephrology consult
Continue IV fluids
Assessment / Plan
Assessment / Plan
Gen-somnolent but arousable
HEENT-NC, AT, anicteric, clear oral mm
Neck-supple
CV-reg, no M, +S1/S2
Lungs-clear B/L
Abd-soft, NT, ND
Ext-no edema
Musculoskeletal-no cyanosis, clubbing
Skin-warm and dry
Neuro-grossly non-focal
Psych-calm, cooperative
Shock -septic versus hypovolemic versus other etiology. Hemodynamically improving with IV fluid support. Off vasopressors. Monitor closely in ICU. Figurine Maker consulted. Continue IV fluids.
According to history patient was not eating or drinking much for 1 week prior to presentation. Had reported cough and dysphagia in [place].
Lactic acid improved. Procalcitonin unreliable in the setting of SHANI.
Gram-negative bacteremia -source unclear. Continue IV antibiotics. Await cultures. Unfortunately only 1 set of blood culture sent on admission, will recheck.
SHANI -likely due to shock, hypotension, ATN. Garcia catheter in place. Nephrology consulted. 735 cc output via Garcia catheter overnight. BUN 111, creatinine 2.1. Normal anion gap metabolic acidosis.
Acute thrombocytopenia -differential diagnosis includes ITP versus other causes. Hematology consulted. Platelet count 3000 on admission, 1 unit transfused. Repeat platelet count this morning still 3000. Will give additional unit of platelets.
IV Decadron per hematology.
Atrial fibrillation with rapid ventricular response -IV amiodarone initiated. Blood pressure dropped with IV Cardizem. Cardiology consulted.
Metastatic pancreatic cancer -initial diagnosis 2013, s/p Whipple's procedure 2014. Treated with Xeloda, radiation.
Chronic anemia -normocytic in the past, currently macrocytic. Check anemia labs.
GERD
DNR
Anticipated Discharge: > 48 hours
Subjective/Interval History
-
Date of Service: May 28, 2024
Patient seen and examined. Somnolent but arousable. Complaining of dry mouth.
Objective Data
-
Labs:
Laboratory Results
05/28/24
03:06
WBC 9.3
Hgb 9.7 L
Hct 27.6 L
Plt Count 3 L*
Sodium 136
Potassium 3.9
Chloride 107
Carbon Dioxide 19 L
BUN 111 H*
Creatinine 2.1 H
Glucose 152 H
Calcium 7.1 L
Total Bilirubin 1.8 H
AST 146 H
ALT 61 H
Alkaline Phosphatase 212 H
Vital Signs:
Vital Signs
Temp Pulse Resp BP Pulse Ox
97.1 F 63 18 109/74 96
05/28/24 07:00 05/28/24 06:15 05/28/24 06:15 05/28/24 06:00 05/28/24 06:15
I&O
05/27/24 05/28/24 05/29/24
06:59 06:59 06:59
Intake Total 3762.7 / 3762.7
Output Total 735 / 735
Balance 3027.7 / 3027.7
Review of Systems
-
History Source: Patient
All other systems: Reviewed and negative
--- NOTE | 2024-05-28 07:36 | W.CON.NEPH ---
Consultation
-
Date/Time Consultation Requested: 05/28/24699
Date/Time Consultation Performed: 05/28/24699
Requesting Provider: Dr. Holguin
Performing Provider: Dr. Delaney
Reason for Consultation: SHANI
Medical History
-
Chief Complaint: Weakness fatigue
History of Present Illness:
This is a 78-year-old gentleman with metastatic pancreatic cancer status post chemotherapy with Xeloda last given April 15, 2024. He was noted to have metastatic disease to the pleural space on the right side and underwent radiation back in December.
His family noted that his oral intake decreased and he was weaker and more lethargic. At the time of arrival to the ED ER he was noted to be in A-fib with rapid rate and hypotensive. He was given volume resuscitation. His creatinine was noted to
be elevated at 2.3 with a metabolic acidosis. He also had a lactic acidosis. He was also noted to be significantly thrombocytopenic with a platelet count of 3. He was placed on pressors and sent to the ICU. He is currently critically ill.
Past Medical History
Metastatic prostate cancer, Whipple procedure, right upper lung nodule, right pleural metastatic disease, GERD, [place] atrial fibrillation, left hip pinning, right knee arthroscopy, left hip replacement, right knee replacement, carpal tunnel
release bilateral, pyloric valve dilation
Social History
Tobacco: Non-Smoker
Alcohol: Former
Family History
Family History: Not Pertinent
Allergies / Home Medications
Allergy/AdvReac Type Severity Reaction Status Date / Time
No Known Allergies Allergy Verified 01/13/19 19:53
�Medication �Instructions �Recorded �Confirmed �Type
Pancreatic Nutrients 1 tab PO BID@0800,2200 05/27/24 05/27/24 History
dexamethasone 2 mg tablet 2 mg PO BID 05/27/24 05/27/24 History
diltiazem HCl 120 mg capsule,24 120 mg PO DAILY 05/27/24 05/27/24 History
hr,extended release (Tiadylt ER)
famotidine 40 mg tablet 40 mg PO DAILY 05/27/24 05/27/24 History
vrksfn-eruvirpl-mplhcto 1 cap PO BID@1200,1800 05/27/24 05/27/24 History
24,000-76,000-120,000 unit
capsule,delayed rel (Creon)
sodium chloride 1,000 mg soluble 2,000 mg PO BID 05/27/24 05/27/24 History
tablet
Review of Systems
-
Fatigue. No chest pain or shortness of breath
All other systems: Negative unless noted
Physical Exam
Vital Signs
Vital Signs
Temp Pulse Resp BP Pulse Ox
97.1 F 63 18 109/74 96
05/28/24 07:00 05/28/24 06:15 05/28/24 06:15 05/28/24 06:00 05/28/24 06:15
Lab Results
WBC 9.3 10^3/uL (4.8-10.8) 05/28/24 03:06
RBC 2.87 10^6/uL (4.70-6.10) L 05/28/24 03:06
Hgb 9.7 g/dL (13.0-18.0) L 05/28/24 03:06
Hct 27.6 % (39.0-52.0) L 05/28/24 03:06
Plt Count 3 10^3/uL (130-400) L* 05/28/24 03:06
Sodium 136 mmol/L (135-145) 05/28/24 03:06
Potassium 3.9 mmol/L (3.5-5.1) 05/28/24 03:06
Chloride 107 mmol/L (98-107) 05/28/24 03:06
Carbon Dioxide 19 mmol/L (22-30) L 05/28/24 03:06
BUN 111 mg/dl (9-20) H* 05/28/24 03:06
Creatinine 2.1 mg/dL (0.7-1.3) H 05/28/24 03:06
eGFR 31.43 05/28/24 03:06
Glucose 152 mg/dl (70-99) H 05/28/24 03:06
Calcium 7.1 mg/dl (8.4-10.2) L 05/28/24 03:06
Albumin 1.8 g/dl (3.5-5.0) L 05/28/24 03:06
Laboratory Tests
01/13/19 05/27/24
21:03 16:58
Creatinine 0.7
Urine pH 5.0
Ur Specific [place] 1.020
Ur Occult Blood Reflex 3+ A
Urine Bacteria (Reflex) Many A
Physical Exam
Patient is awake alert oriented and in no distress. Mood and affect were pleasant, insight and judgment were good. Pupils are equal round and reactive to light, extraocular movements are intact, sclera were anicteric. Hearing was normal, ears and
nose are intact. Oropharynx was clear but dry. Neck was supple with trachea midline and no thyromegaly. Heart was irregular rate and rhythm without rubs. Lower extremities without edema. Lungs were clear to auscultation bilaterally and with normal
excursion. Abdomen was soft, nontender, with normal active bowel sounds, and no hepatosplenomegaly. Skin was without rash and with normal turgor.
Data Reviewed
-
Radiology: Image Personally Visualized and interpreted (Chest x-ray on 05/27/2024 by my reading shows right effusion, bilateral infiltrates)
Medical Tests (Nuc Med, Echo etc): Image Personally Visualized and interpreted (EKG on 05/27/2024 by my read shows atrial fibrillation rapid rate, nonspecific T wave abnormality)
Labs: Labs Reviewed by me
Old Records: Reviewed
Assessment/Plan
-
Assessment
Metastatic pancreatic cancer
Thrombocytopenia
Anemia
Acute kidney injury
Elevated LFTs
Atrial fibrillation
Hypotension
Metabolic acidosis
Thrush
Plan
Maintain Garcia
IV fluids with bicarbonate
He still appears to be volume depleted
Follow-up liver function test likely shock liver
Empiric antibiotics for gram-negative rods in blood
Transfuse platelets as required
High-dose steroids
Critical care time spent 31 minutes
[2024-05-28 08:13] LABS: Glucose - Point of Care 161 mg/dl (70-99)
[2024-05-28] MEDS: NOVOLOG FLEXPEN-LOW RESISTANCE 1 UNITS SC ×3 (08:30→18:12)
--- NOTE | 2024-05-28 08:30 | PTCARENOTE ---
Assumed care of pt at 0715 following shift report. Pt asleep, woken for assessment and care. Drowsy but following commands appropriately, oriented to person/place. Denies c/o pain. Dr Delaney here to see pt. NSS IVF changed to ordered IVF w/ HCO3. Garcia
patent and draining kelli w/ sediment. O2 at 1 l/min w/ Pox 92-93%. Physical assessment completed as documented. Pt repositioned and comfort care provided. Platelets infused as ordered. Call alberto w/in pt reach and safe environment maintained.
[2024-05-28] MEDS: NSS (PRESERVATIVE FREE) 10 ML IV (08:31)
[2024-05-28] MEDS: PROTONIX IV 40 MG IV (08:31)
[2024-05-28] MEDS: SODIUM BICARBONATE 1150 MEQ IV ×2 (08:31→21:42)
[2024-05-28] MEDS: MYCOSTATIN ORAL SUSPENSION PO ×3 (08:31→21:31)
[2024-05-28] MEDS: NSS IV (08:52)
--- NOTE | 2024-05-28 10:22 | PTCARENOTE ---
Pt placed in chair position in bed and began to assist pt with breakfast. Pt noted to have delayed efforts at swallowing water with apparent difficulty swallowing the water followed by throat clearing and coughing. No further attempts made to give
pt food/liquids PO. Dr Holguin notified of findings and order for Speech Therapy evaluation received. Pt's and daughter here to visit. Updated on pt's present condition and plan of care.
--- NOTE | 2024-05-28 11:22 | PHA.VAN.FU ---
Vancomycin Assessment / Plan
- Assessment
Renal Function: SCR Decreasing (still elevated 2.3->2.1)
WBC's are: WNL
In the past 24 hrs, patient has been: Hypothermic (96.3 (05/28/24 11:00))
Concomitant Antimicrobials: piperacillin/tazo
- Assessment - Therapeutic Drug Monitoring
Random Level: 16.7 ( 10 hours post 2000 mg LD)
- Dosing Plan
Continue: dose by random level
Dosing by Level: Re-dose today (750 mg x 1 dose around 1400 today)
- Monitoring Plan
Random Level: repeat random level in the AM
- Follow Up
Pharmacy will continue to follow.
Vancomycin Follow UP
- -
Patient Age: 78
Patient Sex: Male
Vancomycin Day #: 2
Indication: Pulmonary/Respiratory
Requesting Provider: DIOGO Gill
Pertinent Antimicrobial Allergies:
No Known Allergies Allergy (Verified 01/13/19 19:53)
Height / Weight:
Height 5 ft 10 in
Actual Weight 71.7 kg
Pertinent Past Medical History: metastatic pancreatic cancer, finished chemo 04/15/24,
- Vital Signs / Lab Results
Temp Pulse Resp BP Pulse Ox
96.3 F L 72 29 101/71 93
05/28/24 11:00 05/28/24 10:00 05/28/24 10:00 05/28/24 10:00 05/28/24 10:01
Lab Results - Hematology
05/27/24 05/28/24
11:34 03:06
WBC 7.2 9.3
Lab Results - Chemistry
05/27/24 05/28/24
11:34 03:06
BUN 116 H* 111 H*
Creatinine 2.3 H 2.1 H
Estimated Creat Clear 27 29
Albumin 2.2 L 1.8 L
05/27/24 05/27/24 05/27/24
14:41 18:30 22:20
Lactic Acid 3.5 H 3.0 H 2.9 H
05/28/24 05/28/24
03:06 06:00
Lactic Acid 1.6 Cancelled
Lab Results - Urine
05/27/24
16:58
Urine Nitrite (Reflex) Negative
Leukocyte Esterase Rfl Trace A
Ur Squamous Epith Cells 0-2
Microbiology Results
05/27/24 13:57 Blood Culture - Preliminary
Blood/Venous Escherichia coli
Klebsiella pneumoniae
Gram Stain - Preliminary
05/27/24 13:57 Respiratory Culture - Final
Sputum Gram Stain - Final
05/27/24 13:57 Influenza Types A & B (MORENO) - Final
Nasal Swab Negative for Influenza A & B, NAAT
Negative results must be combined with clinical observations
and patient history.
Nucleic Acid Amplification test (NAAT)performed on the
[employer]entaZOOM platform.
Therapeutic Drug Monitoring
Random Vancomycin 16.7 ug/ml 05/28/24 03:06
[2024-05-28 11:35] LABS: Glucose - Point of Care 170 mg/dl (70-99)
--- NOTE | 2024-05-28 11:41 | CON.ONC ---
Impression
Impression
Profound thrombocytopenia disproportionate to chemotherapy effect
Sepsis gram-negative E. coli and Klebsiella
Rising INR
Metastatic pancreatic carcinoma
Atrial fibrillation
Hypotension
Gram-negative sepsis
GERD
Stomatitis/thrush
SHANI
Plan
Plan
Review peripheral smear rules out pseudothrombocytopenia or schistocytes
Dexamethasone as treatment for possible ITP superimposed on chemotherapy effect
Consider IgG in light of sepsis
Check direct a platelet antibody
LDH
Direct bilirubin pending
No significant response to platelet transfusion
No active bleeding
Patient History
History of Present Illness
78-year-old male from home by EMS complaining of weakness and fatigue, 4 days of productive cough with sore throat and dysphagia. He has past medical history of metastatic pancreatic CA diagnosed a decade ago. Recent evidence of mets December 2022 to
right pleural space status post chemo December 2022April 2024 Xeloda stopped April 15. He completed a course of [employer] and has been on steroids and now is suffering what appears to be thrush/stomatitis. He was noted to developrapid A-fib and
hypotensive And route to the hospital.Despite treatment he is still in rapid A-fib and hypotensive.He provides a poor medical history in bed In the ICU.
Past-Medical/Surgical History
Past Medical History
Metastatic pancreatic CA initial Dx 2014 mets December 2022 to right pleural space status post chemo December 2022April 2024 Xeloda
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
Paroxysmal A-fib
Cardiac murmur known
GERD
Macrocytic anemia
Hyponatremia secondary metastatic pancreatic CA
Past Surgical History
Left hip pinning 1957
Right knee arthroscopy times 10/25/1979
Left total hip replacement 2006
Right total knee replacement 2018
CTR bilateral hands SeptemberOctober 2013
Pyloric valve dilation
Whipple 2015
Social History
Tobacco: Non-smoker
Alcohol: Former (Used to drink 2 glasses of wine daily until 1 month ago)
Drug: None
Personal:
Living: With Family ( myke )
Employment: Retired
Family History
Family History: Not pertinent
Patient Medication
�Medication �Instructions �Recorded �Confirmed �Last Taken �Type
Pancreatic Nutrients 1 tab PO BID@0800,2200 05/27/24 05/27/24 Unknown History
dexamethasone 2 mg tablet 2 mg PO BID 05/27/24 05/27/24 05/26/24 History
diltiazem HCl 120 mg capsule,24 120 mg PO DAILY 05/27/24 05/27/24 05/26/24 History
hr,extended release (Tiadylt ER)
famotidine 40 mg tablet 40 mg PO DAILY 05/27/24 05/27/24 Unknown History
firntx-ldnjjoqu-yuxxuyb 1 cap PO BID@1200,1800 05/27/24 05/27/24 Unknown History
24,000-76,000-120,000 unit
capsule,delayed rel (Creon)
sodium chloride 1,000 mg soluble 2,000 mg PO BID 05/27/24 05/27/24 Unknown History
tablet
Active Medications
Generic Name Dose Route Start Last Admin
Trade Name Freq PRN Reason Stop Dose Admin
Acetaminophen 650 mg 05/27/24 15:51
Acetaminophen 325 Mg Tablet PO 06/24/24 15:50
Q4HPRN PRN
mild pain/COHEN/temp> 100.4F
Dextrose 12.5 grams 05/27/24 17:00
Dextrose 50% (0.5 Grams/Ml) 50 Ml Syringe IV 06/24/24 16:59
[id number] PRN
hypoglycemia
Protocol
Glucagon 1 mg 05/27/24 17:00
Glucagon 1 Mg Vial IM 06/24/24 16:59
PRN PRN
hypoglycemia - no IV access
Protocol
Phenylephrine HCl 50 mg in 250 mls @ 0 mls/hr 05/27/24 14:15 05/27/24 21:51
Adrian-Synephrine IV 250 mls
PER PROTOCOL SESAR Administration
Protocol
Per Protocol
Amiodarone HCl 900 mg/ 518 mls @ 0 mls/hr 05/27/24 14:15 05/27/24 14:47
Dextrose/Water IV 518 mls
PER PROTOCOL SESAR Administration
Protocol
Per Protocol
Vancomycin HCl 1 each/ Device 0 mls @ 0 mls/hr 05/27/24 16:00
IV
PER PROTOCOL SESAR
Protocol
As Directed
Piperacillin Sod/Tazobactam Sod 2.25 grams in 50 mls @ 100 mls/hr 05/27/24 16:00 05/28/24 10:43
Zosyn IV 50 mls
Q6H SESAR Administration
Dexamethasone Sodium Phosphate 60 mls @ 220 mls/hr 05/28/24 15:00
40 mg/ Sodium Chloride IV 06/02/24 14:59
Q24H SESAR
Sodium Bicarbonate 150 meq/ 1,150 mls @ 80 mls/hr 05/28/24 08:15 05/28/24 08:31
Sterile Water IV 05/29/24 08:14 1,150 mls
.[id number] SESAR Administration
Vancomycin HCl 750 mg in 150 mls @ 150 mls/hr 05/28/24 14:00
Vancocin IV 05/28/24 14:59
ONCE ONE
Insulin Aspart 0 units 05/27/24 18:00 05/28/24 08:30
Insulin Aspart Low Resistance 300 Units/3 Ml Pen.Injctr SC 06/24/24 17:59 1 units
Q6 SESAR Administration
Protocol
Nystatin 5 ml 05/27/24 18:00 05/28/24 08:31
Nystatin Oral Suspension 500,000 Units/5 Ml PO 06/24/24 17:59 Not Given
QID SESAR
Pantoprazole Sodium 40 mg 05/28/24 08:00 05/28/24 08:31
Pantoprazole Sodium 40 Mg/10 Ml Vial IV 06/25/24 07:59 40 mg
DAILY SESAR Administration
Sodium Chloride 0 flush 05/27/24 16:00
Sodium Chloride 0.9% (Flush) Syringe IV 06/24/24 15:59
PER PROTOCOL SESAR
Sodium Chloride 10 ml 05/28/24 08:00 05/28/24 08:31
Sodium Chloride 0.9% (Preservative Free) 10 Ml Vial IV 06/25/24 07:59 10 ml
DAILY SESAR Administration
Review of Systems
-
Patient unable to offer significant complaints Other than those reviewed in the HPI.
Physical Exam
-
Physical Exam
General: Generalized weakness
HEENT: NormoCephalic, Thrush,Dry oral mucosa
Respiratory: No Wheezes, Rales or Rhonchi
Cardiac: S1/S2, Irregular Rhythm (Rapid A-fib with RVR 132 bpm), Murmur (Holosystolic 3/6)
GI: Soft, Non Tender, Non Distended, Normal Bowel Sounds and No Hepatosplenomegaly
Musculoskeletal: No Clubbing, No Cyanosis, Edema, Left Lower Extremity (+1-2 lower ankles only) and Edema, Right Lower Extremity (+1-2 lower ankles only); No Edema, Left Upper Extremity or Edema, Right Upper Extremity
Skin: Warm and Dry; No Rash
Neuro: AO x 3, No Motor Deficits, Nonfocal/grossly intact and No Sensory Deficits; No Slurred Speech, Facial Droop or Tremors
Psych: Calm
Labs
Lab Results
WBC 9.3 10^3/uL (4.8-10.8) 05/28/24 03:06
RBC 2.87 10^6/uL (4.70-6.10) L 05/28/24 03:06
Hgb 9.7 g/dL (13.0-18.0) L 05/28/24 03:06
Hct 27.6 % (39.0-52.0) L 05/28/24 03:06
MCV 96.2 fL (80.0-94.0) H 05/28/24 03:06
MCH 33.8 pg (27.0-31.0) H 05/28/24 03:06
MCHC 35.1 g/dL (33.0-37.0) 05/28/24 03:06
RDW 16.4 % (11.5-14.5) H 05/28/24 03:06
Plt Count 3 10^3/uL (130-400) L* 05/28/24 03:06
MPV 9.7 fL (7.4-10.4) 05/28/24 03:06
Abs Immat Gran (auto) 0.2 10^3/uL (0-0.05) H 05/28/24 03:06
Absolute Neuts (auto) 8.6 10^3/uL (1.4-6.5) H 05/28/24 03:06
Absolute Lymphs (auto) 0.1 10^3/uL (1.2-3.4) L 05/28/24 03:06
Absolute Monos (auto) 0.5 10^3/uL (0.1-0.6) 05/28/24 03:06
Absolute Eos (auto) 0.0 10^3/uL (0-0.7) 05/28/24 03:06
Absolute Basos (auto) 0.0 10^3/uL (0-0.2) 05/28/24 03:06
Immature Gran % 1.7 % (0-0.5) H 05/28/24 03:06
Neutrophils % 92.0 % (42.2-75.2) H 05/28/24 03:06
Lymphocytes % 0.7 % (20.5-51.1) L 05/28/24 03:06
Monocytes % 5.6 % (1.7-9.3) 05/28/24 03:06
Eosinophils % 0.0 % (0-6) 05/28/24 03:06
Basophils % 0.0 % (0-2) 05/28/24 03:06
Creatinine 2.1 mg/dL (0.7-1.3) H 05/28/24 03:06
Vital Signs
Vital Signs
Temp Pulse Resp BP Pulse Ox
96.3 F L 72 29 101/71 93
05/28/24 11:00 05/28/24 10:00 05/28/24 10:00 05/28/24 10:00 05/28/24 10:01
--- NOTE | 2024-05-28 12:15 | PTCARENOTE ---
Pt continues to rest quietly in bed- drowsy but arousable to name, follows commands although generalized weakness noted. Oriented to person, place, month/year. Occasional confused comment but appears to reorient easily. Pt independently using
Brionnauer to orally suction. Waiting on eval from Speech Therapy- remains NPO. Oral care provided. Remains onO2 at 2l/min w/ Pox 92-94%. No respiratory distress noted. No additional changes from previous assessment findings.
[2024-05-28] MEDS: MYCOSTATIN ORAL SUSPENSION 5 ML PO (13:01)
[2024-05-28 13:36] LABS: LDH 299 U/L (120-246)
--- NOTE | 2024-05-28 13:36 | CHAP ---
Mr. Qureshi was resting. He responded to supervising producer's words with a nod, and welcomed prayer. Emotional and spiritual support provided.
--- NOTE | 2024-05-28 13:40 | W.PN.UPDATE ---
Update Note
Progress Note Update
Reevaluated the patient at the bedside
Complains of some dysphagia, chest congestion, increased mucus production from his chest
Speech therapy evaluation
Sputum culture
Follow chest x-ray
Updated and daughter at the bedside-explained current clinical situation-rapid atrial fibrillation now sinus, hypotension improving, sepsis, possible pneumonia, severe thrombocytopenia, etc.
Reviewed with critical care nursing
[2024-05-28] MEDS: VANCOCIN 150 IV (14:39)
[2024-05-28 15:24] LABS: ALT (SGPT) 52 U/L (0-50); AST (SGOT) 89 U/L (17-59); Albumin 1.9 g/dl (3.5-5.0); Alkaline Phosphatase 182 U/L (38-126); Calcium 7.1 mg/dl (8.4-10.2); Carbon Dioxide 19 mmol/L (22-30); Chloride 106 mmol/L (98-107); Direct Bilirubin 1.2 mg/dl (0.0-0.4); Estimated Creatinine Clearance 32 ml/min; Glucose 158 mg/dl (70-99); Potassium 3.7 mmol/L (3.5-5.1); Sodium 137 mmol/L (135-145); Total Bilirubin 2.1 mg/dl (0.2-1.3); Total Protein 3.8 g/dl (6.3-8.2); eGFR 35.44
[2024-05-28 15:27] LABS: Blood Urea Nitrogen 133 mg/dl (9-20)
--- NOTE | 2024-05-28 15:33 | W.PN.CD ---
Today's Communication / Plan
-
when able to take PO, can start amiodarone 200mg daily
please call us back with additional questions
Impression / Plan
-
78 yo male with PMH mild , mild AR, paroxysmal A fib, metastatic pancreatic CA initial Dx 2013, Whipple 2014, mets December 2022 to right pleural space, status post chemo December 2022April 2024 (Xeloda); now s/p 2 weeks of chest radiation admitted
with weakness. noticed he has not been eating/drinking much for about one week. Patient reports dysphagia, cough. RN from [employer] checked on him: was told BP was low and should go to hospital.
Upon arrival: hypotensive, A fib with RVR, SHANI, severe thrombocytopenia (plts 3). Patient is critically ill.
# Hypotension, SHANI: improved
-poor PO intake/failure ot thrive for past week
-s/p IV fluid resuscitation and pressors
# Dysphagia
-significant aspiration suspected: NPO and undergoing swallow eval
# A fib with RVR
-has h/o paroxysmal A fib; amiodarone was used for rate control in setting of hypotension, and converted back to sinus
-no OAC due to low plts (CHADS2-VASC = 2).
-echo this admission
-when able to take PO, can start amiodarone 200mg daily
# Mild and AR
-last echo 2019
-repeat this admission
# Metastatic pancreatic cancer, thrombocytopenia
-s/p Xeloda and radiation
-per oncology: steroids will be given
Physical Exam
Vital Signs/Labs
Vital Signs
Temp Pulse Resp BP Pulse Ox
96.5 F L 72 29 101/71 93
05/28/24 15:00 05/28/24 10:00 05/28/24 10:00 05/28/24 10:00 05/28/24 10:01
05/27/24 05/28/24 05/29/24
06:59 06:59 06:59
Actual Weight 71.7 kg
05/28/24 03:06
05/28/24 14:50
PT 17.6 Sec (11.4-14.6) H 05/27/24 16:58
INR 1.46 05/27/24 16:58
APTT 32.1 Sec (23.4-35.0) 05/27/24 16:58
Magnesium 2.3 mg/dl (1.6-2.3) 05/27/24 11:34
Free T4 1.34 ng/dl (0.78-2.19) 05/27/24 11:34
Physical Exam
Constitutional: Other (lethargic)
EENT: Moist mucous membranes
Cardiovascular: Rhythm & rate is regular, Pedal edema is absent, JVD pressure is normal and Systolic murmur present
Respiratory: Labored respirations
Neuro/Psych: Oriented
Data Reviewed
-
Date of Service: May 28, 2024
EKG: Other (Tele: Afib-->NSR)
Labs: Labs Reviewed by me
[2024-05-28] MEDS: DECADRON 60 MG IV (15:45)
--- NOTE | 2024-05-28 16:00 | PTCARENOTE ---
Results of BMP as well as urine output 10/25ml/hr reported to Dr Delaney via TT. Orders for urine lab tests received- specimen collected and sent to lab. No additional orders received at this time. Pt continues to rest quietly- mostly napping although
occasionally watching TV and interacting w/ family at bedside. Oral care/comfort care provided. No complaints received or additional changes from previous assessment findings. Safe environment maintained.
[2024-05-28 16:24] LABS: Urine Sodium 9 mmol/L (30-90)
--- NOTE | 2024-05-28 17:11 | PTOTSP ---
SPEECH THERAPY SWALLOW EVALUATION:
Patient exhibits clinical signs of oropharyngeal dysphagia, likely [id number] related to generalized weakness/deconditioning secondary to metastatic pancreatic cancer with mets to Right lung pleural space. Patient is at high risk for
aspiration and related complications given severity of oropharyngeal dysphagia along with tenuous respiratory/pulmonary status and confusion. Patient currently with pneumonia, poor secretion management. Swallow prognosis appears guarded at this
time. Recommending strict NPO at this time; Non-oral medications recommended. Consider instrumental assessment of swallowing (VSE) to further assess swallow physiology when indicated, though patient is not appropriate at this time given severity of
critical illness at this time. Recommend ST to follow, re-assess patient in 24 hours, assess readiness for additional p.o. textures/trials, determine indication for VSE when/if appropriate, provide continued pt/family education regarding aspiration
risks and precautions, and provide continued diagnostic swallow therapy as appropriate. Discussed with pt, family, RN, and Dr. Holguin.
RECOMMEND:
1) strict NPO
2) Non-oral medications recommended
3) Consider VSE to further assess swallow physiology when indicated, though pt not appropriate at this time
4) ST to follow, re-assess patient in 24 hours
[2024-05-28 18:23] LABS: Glucose - Point of Care 164 mg/dl (70-99)
--- NOTE | 2024-05-28 19:10 | PTCARENOTE ---
Addendum entered by Omero Hernández RN 05/28/24 19:33:
Pt complaining of severe dry mouth, nasal irritation.
Humidification added to O2 therapy.
Original Note:
Received patient approx 1900.
Resting in bed, slightly disoriented but follows simple commands appropriately.
Remains Sinus w/o noted ectopy, normotensive, normothermic.
-Remains off vasopressors
-Amio gtt remains off.
Per speech eval pt. is strict NPO, speech recom. video eval.
oliguric, unable to assess urine quality at this time.
Plan of care, shift goals explained to patient at this time, Social determinants of health incorporated into patient plan and care.
[2024-05-28] MEDS: DILAUDID 0.5 MG IV (20:57)
--- NOTE | 2024-05-28 22:15 | PTCARENOTE ---
Pt. having dyspnea at rest, desatting into low to mid 80s, decreased urine output, Right sided lung sounding more wet.
-Placed on 10L Midflo.
-CXR ordered
-STAT BMP sent
-Lasix ordered.
Pt. still dyspneic, Improving Spo2 91-93 on 10L midflo.
[2024-05-28] MEDS: LASIX 20 MG IV (22:19)
[2024-05-28 22:35] LABS: Calcium 7.2 mg/dl (8.4-10.2); Carbon Dioxide 16 mmol/L (22-30); Chloride 105 mmol/L (98-107); Estimated Creatinine Clearance 36 ml/min; Glucose 157 mg/dl (70-99); Potassium 3.7 mmol/L (3.5-5.1); Sodium 136 mmol/L (135-145)
[2024-05-28 22:49] LABS: Blood Urea Nitrogen 137 mg/dl (9-20)
[2024-05-28] MEDS: NSS (PRESERVATIVE FREE) 0.125 ML IV (23:26)
[2024-05-28] MEDS: ATIVAN 0.25 MG IV (23:27)
--- NOTE | 2024-05-28 23:31 | PTCARENOTE ---
Patient restless, ativan ordered.
CXR results reviewed with ICU ABDELRAHMAN.
Patient sp02 92-95 percent 10L midflo.
Remains normal sinus, more ectopy noted on bedside monitor.
[2024-05-29] VITALS (46 sets, daily range): BP systolic 73–139; BP diastolic 53–100; BMI 24.4
[2024-05-29] MEDS: NOVOLOG FLEXPEN-LOW RESISTANCE SC ×2 (00:18→06:28)
[2024-05-29 00:29] LABS: Glucose - Point of Care 130 mg/dl (70-99)
--- NOTE | 2024-05-29 01:47 | PTCARENOTE ---
Pt. now hypotensive MAPs 62, Started on Norepi.
Dyspnea has improved, sp02 91-94 on 10L midflo.
Remains normal sinus w/ PVCs noted.
[2024-05-29] MEDS: LEVOPHED 250 IV (02:15)
[2024-05-29] MEDS: ZOSYN 50 IV ×2 (03:26→09:41)
[2024-05-29 04:51] LABS: Hematocrit 29.2 % (39.0-52.0); Hemoglobin 10.7 g/dL (13.0-18.0); Mean Corp Hgb Conc. 36.6 g/dL (33.0-37.0); Mean Corpuscular Volume 92.7 fL (80.0-94.0); Platelet Count 3 10^3/uL (130-400); Red Blood Cell Count 3.15 10^6/uL (4.70-6.10); Red Cell Dist. Width 16.6 % (11.5-14.5); White Blood Cell Count 15.5 10^3/uL (4.8-10.8)
[2024-05-29 04:56] LABS: Vancomycin Random 17.6 ug/ml
[2024-05-29 05:20] LABS: ALT (SGPT) 40 U/L (0-50); AST (SGOT) 57 U/L (17-59); Albumin 1.8 g/dl (3.5-5.0); Alkaline Phosphatase 346 U/L (38-126); Blood Urea Nitrogen 138 mg/dl (9-20); Calcium 6.7 mg/dl (8.4-10.2); Carbon Dioxide 16 mmol/L (22-30); Chloride 104 mmol/L (98-107); Estimated Creatinine Clearance 34 ml/min; Glucose 134 mg/dl (70-99); Potassium 3.6 mmol/L (3.5-5.1); Sodium 138 mmol/L (135-145); Total Protein 3.7 g/dl (6.3-8.2); eGFR 37.82
[2024-05-29] MEDS: CALCIUM GLUCONATE 130 MG IV (06:17)
[2024-05-29] MEDS: KCL 160 MEQ IV (06:17)
[2024-05-29 06:29] LABS: Absolute Neutrophils -Man Diff 14.4 10^3/uL (1.4-6.5); Band Neutrophils 11 % (0-3); Lymphocytes 1 % (20-51); Metamyelocytes 1 % (-); Monocytes 5 % (2-9); Platelets Checked Yes; Segmented Neutrophils 82 % (42-75); Total Cells Counted 100; Toxic Granulation 1+; Vacuolated Segs 1+
[2024-05-29 06:31] LABS: Acanthocytes Occasional; Anisocytosis Occasional; Normal RBC Morphology No; Ovalocytes Occasional; Target Cells Occasional
[2024-05-29 06:38] LABS: Glucose - Point of Care 137 mg/dl (70-99)
[2024-05-29] MEDS: DILAUDID 0.5 MG IV ×4 (07:44→17:44)
[2024-05-29] MEDS: MYCOSTATIN ORAL SUSPENSION PO ×2 (07:47→11:17)
[2024-05-29] MEDS: NSS (PRESERVATIVE FREE) 10 ML IV (07:47)
[2024-05-29] MEDS: PROTONIX IV 40 MG IV (07:47)
--- NOTE | 2024-05-29 08:01 | W.PN.INTV ---
Addendum entered and electronically signed by Wander Neff MD 05/29/24 15:59:
Total time spent today was 40 minutes for this encounter. Time includes reviewing laboratory test/imaging results, reviewing pertinent medical records, obtaining and reviewing medical history, performing an appropriate exam, ordering medications,
tests and procedures. Time also includes documentation of this encounter, coordinating patient care and communicating with other healthcare professionals. Total time does not include separately billed tests performed on this date of service.
Original Note:
Today's Communication / Plan
Recommendations
Patient remains critically ill with persistent severe thrombocytopenia despite high-dose steroids, with worsening oxygenation overnight with right middle lobe/right lower lobe mucous plugging/aspiration
Family now in agreement to transition to comfort care/hospice
Stop all other medications except for prn Ativan/Dilaudid/hyoscyamine
Stop trending labs
DNR/DNI
Humanities Teacher already saw patient this morning
Emotional support provided to the family
Transfer to Med-Surg - House Superintendent/Pulmonary service will now sign off. Please reconsult if there are any additional questions/concerns.
Assessment
-
78-year-old male with a history of metastatic pancreatic cancer, paroxysmal atrial fibrillation, GERD, chronic hyponatremia who presented with weakness, fatigue, sore throat, cough and dysphagia noted to have severe thrombocytopenia, rapid atrial
fibrillation on amiodarone and phenylephrine drip-nursing administrator consulted for pressor, atrial fibrillation, critical care management 05/27/2024.
Impression:
CAP
Right middle lobe atelectasis likely due to aspiration/mucous plugging
Septic shock due to pneumonia and UTI
Acute respiratory failure with hypoxia due to above
Rapid atrial fibrillation unstable with hypotension - now in NSR s/ amiodarone
Acute HFmrEF (LVEF: 40-45% via TTE from today)
Valvular heart disease with mild + mild�moderate AI and mild pulmonary hypertension
Gram-negative derek bacteremia due to E. coli + Klebsiella pneumonia (via BCx on 05/27/2024)
Thrombocytopenia-platelet 3-stopped chemo Xeloda April 15, 2024 --> acute thrombocytopenia likely due to sepsis
SHANI
Hyponatremia�resolved
Anemia
Mild hyperglycemia - resolved
Lactic acidosis - resolved as of 05/28/2024
Transaminitis
Hypoalbuminemia
DNR
Conditions present prior to admission:
Metastatic pancreatic cancer-diagnosed 2013 status post chemo/immunotherapy/Whipple.
Metastatic pancreatic cancer with known mets to right pleural space December 2022
History of right pleural catheter December 2022
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
[phone]
Right upper lobe nodule.
PAF.
GERD.
Chronic anemia.
Chronic hyponatremia.
Whipple 2014. Left hip pinning 1957. Right knee arthroscopy 1979. Left hip replacement 2006. Right total knee replacement 2018. Carpal tunnel 2013. Pyloric valve dilation.
Plan
Although patient's hemodynamics have improved with Levophed requirements markedly decreased, he continues to be bacteremic, worsening SHANI with persistent thrombocytopenia and worsening oxygenation overnight
CXR shows progressive RML/RLL atelectasis --> given patient's mucus production prior to arrival and continued lethargic mental status due to sepsis and SHANI, believe this is mainly due to mucous plugging/aspiration
Family discussion held this morning in patient's room and they are interested in transition to comfort care
Hospice consulted
Emotional support was provided
Stop all medications and start prn Ativan, Dilaudid with progression to drip if needed, and hyoscyamine drops
Stop supplemental oxygen unless needed for comfort
Patient is a DNR-no intubation or CPR
Nebulizers if needed for comfort
Cultures reviewed
BCx from 05/27/2024 growing E. coli + Klebsiella. GNR also seen on UCX from 05/27/2024, and repeat BCx from 05/28/2024 also growing GNR
Patient was being managed on Zosyn but now that being transitioned to comfort care antibiotics will be stopped
Influenza negative
COVID-negative
Stop bicarb gtt
Nephrology consulted - recs appreciated
Continue Garcia catheter for comfort; pt also had urinary retention as well as strict intake/output-no bleeding
Atrial fibrillation rate control-has converted to sinus rhythm
Amiodarone drip now off
Cardiology evaluation noted-correspondence reviewed
Troponin down-trended, no longer need to continue trending
Platelet count remains low at 3 despite high-dose steroids with Decadron 40 mg IV q24hrs
Stop trending CBC now that he is comfort care
Stop steroids
DVT prophylaxis- remove SCDs due to comfort
Patient being transitioned to comfort care with hospice consulted. Transfer to Med-Surg. House Superintendent/Pulmonary service will now sign off. Thank you for allowing us to be involved in the care of this patient. Please reconsult if there are any
additional questions/concerns.
Diagnostic data:
Chest x-ray 05/27/2024-small right pleural effusion, bilateral interstitial pulmonary opacifications, suspected CHF
CXR 05/29/2024: There is moderate diffuse coarsening of the interstitial markings throughout both lungs, more prominent on the left which I favor is inflammatory airspace disease/pneumonia rather than CHF as there are no septal lines; Right middle
lobe atelectasis; Small right pleural effusion
Echocardiogram 08/05/2020-EF 55-60%, stage I diastolic dysfunction, mild mitral regurgitation, mild aortic stenosis and mild aortic insufficiency
PFT 02/19/2015-FEV1 3.6 L - 110%, FVC 103%, TLC 81%, DLCO 62%
Subjective Dataa
Subjective Data
Date of Service:
Date of Service: May 29, 2024
Chief Complaint: House Superintendent Follow Up and Pulmonary Follow Up
Subjective:
Patient seen and evaluated morning. Currently on 4 L/min saturating 90%, currently on Levophed at 1mcg/min with BP at 112/72, heart rate 76 and breathing at 16 breaths/min. Family members at bedside including patient's , Gisela, and son -
they are interested in transitioning to comfort care. All questions were answered. Patient's social services designee saw him this morning.
Review of Systems
General: Other (Unable to obtain given patient's acute clinical status/lethargy)
Objective Data
Data Reviewed
Vital Signs / I&O / Oxygen:
Vital Signs
Temp Pulse Resp BP Pulse Ox
97.6 F 79 21 124/96 100
05/29/24 07:25 05/29/24 08:15 05/29/24 08:15 05/29/24 08:15 05/29/24 08:40
Intake and Output
05/28/24 05/29/24 05/30/24
06:59 06:59 06:59
Intake Total 3762.7 / 3842.7 2793.5 / 2873.5 290 / 290
Output Total 735 / 755 520 / 520 40 / 40
Balance 3027.7 / 3087.7 2273.5 / 2353.5 250 / 250
SaO2 100
Nasal Cannula flow liters per 2
minute
Physical Exam
General: Respiratory Distress (n), Comfortable and Sweats (negative)
HEENT: Normocephalic, Moist Mucous Membranes and Other (Icteric conjunctiva bilaterally (mild))
Cardiovascular: S1-S2 and Peripheral Edema (negative)
Respiratory: Wheeze (negative), Crackles (negative), Rhonchi (n), Non-Labored Respirations, Accessory Resp Muscle Use (n), Stridor (n) and Other (Diminished breath sounds on the right hemithorax)
GI: Soft, Non Distended and Non Tender
Neurology: Tremors (negative), Lethargic and Other (Following commands)
Skin: Warm, Dry, Cyanosis (n) and Rash (n)
Labs/Micro/Reports
Lab Data
05/29/24 04:19
05/29/24 04:19
Microbiology
05/28/24 03:06 Nose MRSA Screen - Final
No Methicillin Resistant Staphylococcus aureus isolated.
05/28/24 08:21 Blood/Venous Blood Culture - Preliminary
Positive culture in progress
05/28/24 08:21 Blood/Venous Gram Stain - Preliminary
05/27/24 13:57 Blood/Venous Blood Culture - Preliminary
Escherichia coli
Klebsiella pneumoniae
05/27/24 13:57 Blood/Venous Gram Stain - Preliminary
05/27/24 13:57 Sputum Respiratory Culture - Final
05/27/24 13:57 Sputum Gram Stain - Final
05/27/24 13:57 Nasal Swab Influenza Types A & B (MORENO) - Final
Negative for Influenza A & B, NAAT
Negative results must be combined with clinical observations
and patient history.
Nucleic Acid Amplification test (NAAT)performed on the
[employer] platform.
--- NOTE | 2024-05-29 08:23 | PTCARENOTE ---
report received, assessments per work list. patient moaning, restless. answers simple questions. oriented to person and 'hospital'. medicated with Dilaudid per prn order. patient monitor nsr, pvc's. Levophed per work list. lungs with crackles on
right, diminished with tubular breath sounds. oral membranes very dry, tongue coated with dried blood/scabs. gentle oral care provided. Garcia draining kelli urine.
--- NOTE | 2024-05-29 09:59 | W.PN.HOSP.TC ---
Today's Communication/Plan
-
Comfort care measures.
Assessment / Plan
Assessment / Plan
Gen-somnolent but arousable
HEENT-NC, AT, anicteric, clear oral mm
Neck-supple
CV-reg, no M, +S1/S2
Lungs-clear B/L
Abd-soft, NT, ND
Ext-no edema
Musculoskeletal-no cyanosis, clubbing
Skin-warm and dry
Neuro-grossly non-focal
Psych-calm, cooperative
A/P:
Shock -septic versus hypovolemic versus other etiology. Hemodynamically improving with IV fluid support. Off vasopressors. Monitor closely in ICU. Joiner consulted. Continue IV fluids.
According to history patient was not eating or drinking much for 1 week prior to presentation. Had reported cough and dysphagia in [place].
Lactic acid improved. Procalcitonin unreliable in the setting of SHANI.
Gram-negative bacteremia -source unclear. Continue IV antibiotics. Await cultures. Unfortunately only 1 set of blood culture sent on admission, will recheck.
SHANI -likely due to shock, hypotension, ATN. Garcia catheter in place. Nephrology consulted. 735 cc output via Garcia catheter overnight. BUN 111, creatinine 2.1. Normal anion gap metabolic acidosis.
Acute thrombocytopenia -differential diagnosis includes ITP versus other causes. Hematology consulted. Platelet count 3000 on admission, 1 unit transfused. Repeat platelet count this morning still 3000. Will give additional unit of platelets.
IV Decadron per hematology.
Atrial fibrillation with rapid ventricular response -IV amiodarone initiated. Blood pressure dropped with IV Cardizem. Cardiology consulted.
Metastatic pancreatic cancer -initial diagnosis 2013, s/p Whipple's procedure 2014. Treated with Xeloda, radiation.
Chronic anemia -normocytic in the past, currently macrocytic. Check anemia labs.
GERD
DNR
I had a lengthy discussion with family at bedside today on 05/29. Family decided in favor of comfort care measures. Hospice consulted.
Time spent 62 minutes and more than 50% of the time spent in counseling and coordination with family and other specialist and discussions about poor prognosis.
Anticipated Discharge: 24 - 48 hours
Subjective/Interval History
-
Date of Service: May 29, 2024
Patient seen and examined.
Objective Data
-
Labs:
Laboratory Results
05/28/24 05/29/24
22:14 04:19
WBC 15.5 H
Hgb 10.7 L
Hct 29.2 L
Plt Count 3 L*
Sodium 136 138
Potassium 3.7 3.6
Chloride 105 104
Carbon Dioxide 16 L 16 L
BUN 137 H* 138 H*
Creatinine 1.7 H 1.8 H
Glucose 157 H 134 H
Calcium 7.2 L 6.7 L*
Total Bilirubin 3.0 H
AST 57
ALT 40
Alkaline Phosphatase 346 H
Vital Signs:
Vital Signs
Temp Pulse Resp BP Pulse Ox
97.6 F 79 21 124/96 99
05/29/24 07:25 05/29/24 08:15 05/29/24 08:15 05/29/24 08:15 05/29/24 09:41
I&O
05/28/24 05/29/24 05/30/24
06:59 06:59 06:59
Intake Total 3762.7 / 3842.7 2793.5 / 2873.5 377.5 / 377.5
Output Total 735 / 755 520 / 520 45 / 45
Balance 3027.7 / 3087.7 2273.5 / 2353.5 332.5 / 332.5
--- NOTE | 2024-05-29 10:53 | W.PN.NEPH.PH ---
Today's Communication / Plan
-
cont iVF and keep fernandez
Assessment/Plan
-
Assessment
Metastatic pancreatic cancer
Thrombocytopenia
Anemia
Acute kidney injury
Elevated LFTs
Atrial fibrillation
Hypotension
Metabolic acidosis
Thrush
Plan
SHANI-cr no sig change cr 1.8
worsening Azotemia
cont IVF bicarb for met acidosis
Maintain Fernandez, barely non oliguric
CXR noted inflammation/PNA than CHF
BP monitor off pressors
LFTs improving
hypocalcemia -s/p IV zion
Empiric antibiotics for gram-negative rods in blood
Transfuse platelets as required, hematology follows
High-dose steroids
high risk encounter
ongoing GOC discussion
-
-
Date of Service: May 29, 2024
CC / HPI / ROS
-
Chief Complaint:
SHANI
History of Present Illness:
cr stable over all 1.8, barely non oliguric with fernandez
BP soft, off pressors
plt low at 3k,bicarb at 16, bun 138
Review of Systems:
pt sleeping post diluadid
no fever, mid flow 4lit
Labs
-
Labs:
WBC 15.5 10^3/uL (4.8-10.8) H 05/29/24 04:19
RBC 3.15 10^6/uL (4.70-6.10) L 05/29/24 04:19
Hgb 10.7 g/dL (13.0-18.0) L 05/29/24 04:19
Hct 29.2 % (39.0-52.0) L 05/29/24 04:19
Plt Count 3 10^3/uL (130-400) L* 05/29/24 04:19
Sodium 138 mmol/L (135-145) 05/29/24 04:19
Potassium 3.6 mmol/L (3.5-5.1) 05/29/24 04:19
Chloride 104 mmol/L (98-107) 05/29/24 04:19
Carbon Dioxide 16 mmol/L (22-30) L 05/29/24 04:19
BUN 138 mg/dl (9-20) H* 05/29/24 04:19
Creatinine 1.8 mg/dL (0.7-1.3) H 05/29/24 04:19
eGFR 37.82 05/29/24 04:19
Glucose 134 mg/dl (70-99) H 05/29/24 04:19
Calcium 6.7 mg/dl (8.4-10.2) L* 05/29/24 04:19
Albumin 1.8 g/dl (3.5-5.0) L 05/29/24 04:19
Physical Exam
-
Vital Signs:
Vital Signs
Temp Pulse Resp BP Pulse Ox
97.6 F 65 13 109/64 98
05/29/24 07:25 05/29/24 10:00 05/29/24 10:00 05/29/24 10:00 05/29/24 10:01
Cardiovascular:: Regular rate and rhythm
Respiratory:: Bilateral: CTA (decreased)
Lung Excursion:: Normal
Abdomen:: Nontender and Soft
Extremity Edema:: None: Bilateral:
Fernandez Catheter: Yes
[2024-05-29] MEDS: NOVOLOG FLEXPEN-LOW RESISTANCE 1 UNITS SC (11:15)
[2024-05-29 11:24] LABS: Glucose - Point of Care 175 mg/dl (70-99)
[2024-05-29] MEDS: SODIUM BICARBONATE 1150 MEQ IV (11:43)
--- NOTE | 2024-05-29 12:08 | PTCARENOTE ---
reassessed. levophed weaned to off. family at bedside. support given
--- NOTE | 2024-05-29 12:10 | W.PN.ONC2 ---
Today's Communication / Plan
-
check DIC
follow up platelet assoc Ab, direct
daily CBC, transfuse prn
Impression
Impression
Profound thrombocytopenia disproportionate to chemotherapy effect
Sepsis gram-negative E. coli and Klebsiella
Metastatic pancreatic carcinoma
Atrial fibrillation
Hypotension
GERD
Stomatitis/thrush/dysphagia
SHANI
Plan
Plan
peripheral smear rules out pseudothrombocytopenia or schistocytes by Dr. Talavera over the weekend
Dexamethasone as treatment for possible ITP superimposed on chemotherapy effect
No significant response to platelet transfusion or dexamethasone
Check DIC panel
hemolysis less likely with normal retic
follow up platelet assoc Ab, direct
abx per primary service
new leukocytosis may be secondary to steroids +/- infection
speech therapy
Subjective/Objective
Chief Complaint
no new complaints
Subjective
afebrile, no hypoxia, on pressors
using hydromorphone prn pain
dry mouth
Vital Signs:
Vital Signs
Temp Pulse Resp BP Pulse Ox
97.5 F 63 13 93/58 94
05/29/24 11:00 05/29/24 10:30 05/29/24 10:30 05/29/24 10:30 05/29/24 11:00
Lab Results:
Laboratory Data
WBC 15.5 10^3/uL (4.8-10.8) H 05/29/24 04:19
Hgb 10.7 g/dL (13.0-18.0) L 05/29/24 04:19
Plt Count 3 10^3/uL (130-400) L* 05/29/24 04:19
PT 17.6 Sec (11.4-14.6) H 05/27/24 16:58
INR 1.46 05/27/24 16:58
APTT 32.1 Sec (23.4-35.0) 05/27/24 16:58
eGFR 37.82 05/29/24 04:19
Physical Exam
HEENT: Other (mucous membraines dejah); No Jaundice
Cardiology: Irregular rate/rhythm
Pulmonary: Other (diminshed b/l bases)
GI: Soft
Neuro: Other (lethargic)
Review of Systems
Review of Systems
ROS notable for subjective, otherwise negative
Orders
Orders
Orders From Last 24 Hours
05/29/24 11:58
Add On- LAB Routine
[2024-05-29 12:13] LABS: Reticulocyte Count 0.8 % (0.4-2.8)
--- NOTE | 2024-05-29 12:25 | W.PN.UPDATE ---
Update Note
Progress Note Update
Spoke with patient's family, including Gisela and daughter Rosita. Patient's son as well as patient's son-in-law also at bedside. Given patient's continued critical illness with worsening hypoxia overnight with a right-sided atelectasis,
severe thrombocytopenia despite high-dose systemic steroids and acute kidney failure, they understand the severity of the patient's illness and are interested in transitioning to comfort care. Hospice consult placed. They are amenable to
continuing inpatient hospice. GIP consulted as per hospice CM. Emotional support was provided to the family and all questions were answered. Primary hospitalist, Dr. Cline, also notified of plan.
--- NOTE | 2024-05-29 13:04 | CM ---
Addendum entered by Rocio Banuelos 05/29/24 15:01:
Plan for comfort measures and GIP admission tomorrow
Original Note:
CM reviewed pt with churner- family requesting hospice
Bedside meeting with pt (slept through meeting), spouse/Doris, dtr/Rosita and son/Ayaan
They are requesting GIP assessment
If pt does not qualify for GIP, requesting arrangements to be made at [facility]
Referral to Hospice/Ana
Awaiting GIP assessment
Update to [facility] admissions
Discharge Disposition- hospice ([facility] vs [facility])
--- NOTE | 2024-05-29 14:01 | HOSPNOTE ---
Addendum entered by Ana Dacosta RN 05/29/24 14:50:
Spoke with family at length about hospice and the philosophy. Patient will remain inpatient hospice. [facility] was called and there are no beds so patient will remain in the ICU on comfort and signed onto hospice services tomorrow. Family in agreement
with plan. Emotional support was provided. CM aware of plan.
Original Note:
Referral received will speak with family. More information to follow.
--- NOTE | 2024-05-29 14:25 | PTCARENOTE ---
patient moaning and grimacing with oral care, repositioning. pulse oximeter 84 on 2 liters. medicated with Dilaudid per prn order. oxygen adjustment per work list. family states they are ready for comfort measures. hydraulic jack mechanic and hospitalist
updated with family request. orders pending. hospice clinical liaison in to meet with family
--- NOTE | 2024-05-29 16:23 | PTCARENOTE ---
Addendum entered by Kristen Bray RN 05/29/24 18:38:
increased nonverbal pain cues with repositioning. see prn dilaudid administration. d/w pharmacist, awaiting dilaudid infusion per protocol. family updated with plan of care
Original Note:
comfort measures, dilaudid given for increased nonverbal pain cues. family remains at bedside
[2024-05-29 17:11] LABS: Platelet Antibody, Direct IgG Negative (Negative); Platelet Antibody, Direct IgM Positive (Negative)
[2024-05-29] MEDS: DILAUDID 50 IV (18:53)
--- NOTE | 2024-05-29 20:30 | PTCARENOTE ---
rec'd patient on comfort care measures. Dilaudid gtt initiated for end of life. CPOT 0. family at bedside, supportive measures given. repositioning patient and providing oral care as needed. care ongoing.
[2024-05-29] MEDS: DILAUDID 1 MG IV (23:44)
--- NOTE | 2024-05-30 04:18 | W.PN.DEATH ---
Pronouncement of
-
Called to see patient to pronounce.
No spontaneous heart tones or respirations noted.
Patient not responsive to verbal stimuli.
Patient is pronounced .
Time of : 04:10
Date of : 05/30/24
Cause of : Multiple system failure due to septic shock from E Coli and Klebsiella Pneumonia
Family Notified: Yes
--- NOTE | 2024-05-30 04:33 | PTCARENOTE ---
Addendum entered by Phyllis Nam RN 05/30/24 06:00:
[facility] notified, pt not eligible to donate due to age/cancer history.
Original Note:
Pt asystolic on monitor at 0410, time of pronounced by ICU LABORER TIN CAN. daughter at bedside, supportive measures provided. family updated and en route to hospital. house LABORER TIN CAN made aware.
--- NOTE | 2024-05-30 08:20 | W.DCSUMMARY ---
Discharge Summary
Discharge Data
Date of Admission: 05/27/24
Date of Discharge: 05/30/24
-
Pending Results: No
Hospital Course
Patient is 78 years old male with history of metastatic pancreatic cancer, paroxysmal A-fib, GERD, chronic hyponatremia, thrombocytopenia, came into the hospital with generalized weakness fatigue sore throat cough and dysphagia and noticed to have
severe thrombocytopenia, atrial fibrillation with rapid ventricular response, hypotensive and shock requiring pressors with phenylephrine. He was admitted to ICU. IV fluids, pressors, broad-spectrum antibiotics given. Shredder Operator, nephrology,
hematology, and cardiology were consulted. Blood cultures with E. coli and Klebsiella consistent with sepsis and bacteremia. Urine culture also with Klebsiella pneumonia. Despite aggressive treatment patient continued to deteriorate and more
hypoxic and more thrombocytopenic and metabolic derangements. We discussed with family and they decided on transitioning him to comfort care. Hospice care consulted. Patient was placed on comfort care measures. Unfortunately patient continued to
deteriorate and today on 05/30/2024.
Discharge duration: 32 minutes
Discharge Plan
-
Patient Disposition:
Date/Time
Date/Time: 05/30/24 04:10
Discharge Date and Time
Discharge Date/Time: 05/30/24 07:45
Print Language: DANISH
--- NOTE | 2024-05-30 09:17 | CM ---
Patient early today.
== END 2024-05-30 07:45 | disposition expired | DRG 871 ==
LOC: ICU 15:04
PROVIDERS: Clinical Nurse Specialist Family Health; Hospitalist; Nurse Practitioner Family; ADMITTING PHYSICIAN Hospitalist; ATTENDING PHYSICIAN Hospitalist; CONSULT PHYSICIAN Internal Medicine; CONSULT PHYSICIAN Internal Medicine Critical Care Medicine; CONSULT PHYSICIAN Internal Medicine Hematology & Oncology; CONSULT PHYSICIAN Specialist; EMERGENCY PHYSICIAN Student in an Organized Health Care Education/Training Program; FAMILY PHYSICIAN Family Medicine
PROC: 30233R1 Transfusion of Nonautologous Platelets into Peripheral Vein, Percutaneous Approach (ICD-10-PCS; 2024-05-27)
DX: A41.51 Sepsis due to Escherichia coli [E. coli] (principal); J18.9 Pneumonia, unspecified organism; R65.21 Severe sepsis with septic shock; N17.0 Acute kidney failure with tubular necrosis; J96.01 Acute respiratory failure with hypoxia; B37.0 Candidal stomatitis; C25.9 Malignant neoplasm of pancreas, unspecified; C78.2 Secondary malignant neoplasm of pleura; Z66 Do not resuscitate; Z51.5 Encounter for palliative care; E87.1 Hypo-osmolality and hyponatremia; E87.20 Acidosis, unspecified; C78.01 Secondary malignant neoplasm of right lung; A41.59 Other Gram-negative sepsis; B96.1 Klebsiella pneumoniae [K. pneumoniae] as the cause of diseases classified elsewhere; D69.6 Thrombocytopenia, unspecified; D53.9 Nutritional anemia, unspecified; I10 Essential (primary) hypertension; E88.09 Other disorders of plasma-protein metabolism, not elsewhere classified; E86.0 Dehydration; I48.0 Paroxysmal atrial fibrillation; K12.1 Other forms of stomatitis; K21.9 Gastro-esophageal reflux disease without esophagitis; Z96.642 Presence of left artificial hip joint; Z96.651 Presence of right artificial knee joint; R33.9 Retention of urine, unspecified; M79.601 Pain in right arm; R73.9 Hyperglycemia, unspecified; Z92.21 Personal history of antineoplastic chemotherapy; Z92.3 Personal history of irradiation; Z87.891 Personal history of nicotine dependence; Z85.46 Personal history of malignant neoplasm of prostate
CPT/HCPCS: 71045; 80048; 80053; 80202; 81003; 81015; 82248; 82570; 82962; 83605; 83615; 83735; 84145; 84300; 84439; 84443; 85025; 85045; 85610; 85730; 86023; 86850; 86900; 86901; 87040; 87070; 87077; 87086; 87149; 87186; 87205; 87502; 87811; 92610; 93005; 93306; 96361; 96365; 96367; 96375; 97163; 97167; 99291; P9047; P9073